=== PATIENT | male | born 1955 | race Caucasian/White ===

== ENCOUNTER 2016-12-08 17:33 | Emergency (ER) | payer MEDICAID ==
[~2016-12-08] VITALS: Ht 182.9 cm; Wt 93.4 kg
[~2016-12-08 17:33] MED LIST: CARV12.548 PO; FAMO20TA8 PO; FURO-150 PO; GLIP10TA11 PO; LISI-209 PO; METF1000 PO
[2016-12-08 17:40] VITALS: BP_SYST 119
[2016-12-08] MEDS ORDERED: LIDOCAINE 2%, 20 ML MDV INJ ONE (18:45)
[2016-12-08] MEDS ORDERED: ACETAMINOPHEN/CODEINE 300 MG-30 MG TABLET PO ONE (18:45)
[2016-12-08] MEDS ORDERED: BACITRACIN 1 GM OINT TP ONE (18:45)
[2016-12-08] MEDS ORDERED: DIPHENHYDRAMINE INJ 50 MG/ML VIAL IM ONE (20:00)
[2016-12-08] MEDS ORDERED: MORPHINE SULFATE 10 MG/ML VIAL IM ONE (20:00)
[2016-12-08 20:45] VITALS: BP_SYST 114
== END 2016-12-08 20:45 | disposition home or self-care (01) ==
LOC: SED 17:33
DX: S01.81XA Laceration without foreign body of other part of head, initial encounter (principal); E11.9 Type 2 diabetes mellitus without complications; I10 Essential (primary) hypertension; Z90.89 Acquired absence of other organs; Z95.9 Presence of cardiac and vascular implant and graft, unspecified; Z79.899 Other long term (current) drug therapy; W17.89XA Other fall from one level to another, initial encounter; Y93.89 Activity, other specified; Y92.488 Other paved roadways as the place of occurrence of the external cause; Y99.8 Other external cause status
CPT/HCPCS: 12011; 71010; 71100; 96372; 99284; J1200; J2001; J2270

== ENCOUNTER 2016-12-16 11:20 | Emergency (ER) | payer MEDICAID ==
[~2016-12-16] VITALS: Ht 182.9 cm; Wt 95.3 kg
--- NOTE | 2016-12-16 11:22 | NUR ---
Patient to ER bed H1 to gown for evaluation. Side rails up.
--- NOTE | 2016-12-16 11:24 | NUR ---
Giorgi Vann, at bedside examining patient
--- NOTE | 2016-12-16 11:25 | NUR ---
Pt brought by self, ambulatory, A&Ox4, present to ER for suture removal, VS WNL, skin pink and warm, cap refill <3, wound intact, no drainage or s/s of infection.
[2016-12-16 11:41] VITALS: BP_SYST 183
[2016-12-16 12:14] VITALS: BP_SYST 172
--- NOTE | 2016-12-16 12:14 | NUR ---
Patient given written and verbal discharge instructions and verbalizes understanding. ER MD discussed with patient the results and treatment provided. Patient in stable condition. ID arm band removed. No prescription given. Patient educated on pain management and to follow up with PMD. Pain Scale 0/10. Opportunity for questions provided and answered.
== END 2016-12-16 12:14 | disposition home or self-care (01) ==
LOC: SED 11:20
DX: S01.111D Laceration without foreign body of right eyelid and periocular area, subsequent encounter (principal); E11.9 Type 2 diabetes mellitus without complications; I10 Essential (primary) hypertension; Z95.9 Presence of cardiac and vascular implant and graft, unspecified; X58.XXXD Exposure to other specified factors, subsequent encounter; Y92.89 Other specified places as the place of occurrence of the external cause; Y99.8 Other external cause status
CPT/HCPCS: 99281

== ENCOUNTER 2018-03-14 11:29 | Emergency (ER) | payer MEDICAID ==
[~2018-03-14] VITALS: Ht 182.9 cm; Wt 90.7 kg
[2018-03-14 11:35] VITALS: BP_SYST 154
[2018-03-14] MEDS ORDERED: NACL 0.9% 1,000 ML IV ONE ×2 (11:35→13:45)
[2018-03-14] MEDS ORDERED: ONDANSETRON HCL 4 MG/2 ML VIAL IVP ONE (11:45)
[2018-03-14] MEDS ORDERED: MORPHINE 4 MG/ML INJ. SYRINGE IVP ONE ×2 (11:45→12:30)
[2018-03-14 12:07] LABS: EOSINOPHILS # (AUTO) 0.1 K/uL (0.0-0.4); LYMPHOCYTES # (AUTO) 1.1 K/uL (1.0-5.5); MEAN CORPUSCULAR HGB CONC 34 % (32-36); MONOCYTES # (AUTO) 0.3 K/uL (0.0-1.0)
[2018-03-14 12:11] LABS: CALCIUM 8.9 mg/dL (8.4-11.0); CREATININE 0.7 mg/dL (0.55-1.30)
[2018-03-14 12:12] LABS: BILIRUBIN,URINE NEGATIVE (NEGATIVE); BLOOD, URINE NEGATIVE (NEGATIVE); CLARITY/URINE CLEAR (CLEAR); COLOR,URINE YELLOW (YELLOW); GLUCOSE,URINE 3+ (NEGATIVE); KETONES,URINE NEGATIVE (NEGATIVE); LEUKOCYTE ESTERASE ,URINE NEGATIVE (NEGATIVE); NITRITE, URINE NEGATIVE (NEGATIVE); PH,URINE 6.5 (5.0-8.0); PROTEIN URINE NEGATIVE (NEGATIVE); UROBILINOGEN,URINE 0.2 (0.2-1.0)
[2018-03-14 12:16] LABS: HEMATOCRIT 52.6 % (36-54); HEMOGLOBIN 17.8 g/dL (14.0-18.0); MEAN CORPUSCULAR HEMOGLOBIN 33 pg (27-31); MEAN CORPUSCULAR VOLUME 98 fL (79.0-98.0); PLATELET COUNT (AUTO) 118 K/uL (130-430); RED BLOOD CELL COUNT(AUTO) 5.35 MIL/uL (4.2-6.2); RED CELL DISTRIBUTION WIDTH 11.9 % (9.0-15.0); WHITE BLOOD COUNT (AUTO) 3.7 K/uL (4.8-10.8)
[2018-03-14 12:17] LABS: ALBUMIN 3.7 g/dL (3.4-4.8); BASOPHILS % (AUTO) 0.6 % (0.0-2.0); EOSINOPHILS % (AUTO) 2.3 % (0.0-4.0); LYMPHOCYTES % (AUTO) 29.9 % (20.5-51.5); NEUTROPHILS # (AUTO) 2.2 K/uL (1.8-7.7); NEUTROPHILS % (AUTO) 60.2 % (40.0-70.0); TOTAL BILIRUBIN 0.8 mg/dL (0.0-1.0)
[2018-03-14 12:23] LABS: INR 0.9 (0.80-1.20); PROTHROMBIN TIME 9.5 SECS (9.5-12.5)
[2018-03-14 12:27] LABS: BACTERIA,URINE RARE /HPF (None Seen); RBC,URINE 0-3 /HPF (0-3); WBC,URINE NONE SEEN /HPF (0-3)
[2018-03-14 14:28] LABS: BARBITURATE, URINE NEGATIVE (NEG <=200); BENZODIAZEPINE, URINE NEGATIVE (NEG <=150); CANNABINOID, URINE NEGATIVE (NEG <=50); COCAINE, URINE NEGATIVE (NEG <=150); METHAMPHETAMINES SCREEN,URINE NEGATIVE (NEG <=500); OPIATE, URINE NEGATIVE (NEG <=100); PHENCYCLIDINE SCREEN,URINE NEGATIVE (NEG <=25); UR TRICYCLIC ANTIDEPRESSANTS NEGATIVE (NEG <=300); URINE AMPHETAMINE NEGATIVE (NEG <=500); URINE METHADONE NEGATIVE (NEG <=200); URINE OXYCODONE SCREEN NEGATIVE (NEG <=100); URINE PROPOXYPHENE SCREEN NEGATIVE (NEG <=300)
[2018-03-14] MEDS ORDERED: FOLIC ACID 1 MG, THIAMINE HCL 100 MG, MAGNESIUM SULFATE 1 GM, MVI 10 ML in NACL 0.9% 1,... IV ONE (15:00)
[2018-03-14] MEDS ORDERED: LORazepam 2 MG/ML VIAL (FOR ER USE) IVP ONE (19:00)
[2018-03-14 19:34] VITALS: BP_SYST 109
== END 2018-03-14 19:34 | disposition home or self-care (01) ==
LOC: SED 11:29
DX: K70.10 Alcoholic hepatitis without ascites (principal); K43.9 Ventral hernia without obstruction or gangrene; F10.129 Alcohol abuse with intoxication, unspecified; F17.210 Nicotine dependence, cigarettes, uncomplicated; I10 Essential (primary) hypertension; E11.9 Type 2 diabetes mellitus without complications; Z90.49 Acquired absence of other specified parts of digestive tract; Z90.89 Acquired absence of other organs; Z79.899 Other long term (current) drug therapy
CPT/HCPCS: 36415; 71045; 74176; 80053; 80307; 81000; 82550; 83690; 84484; 85025; 85610; 85730; 93005; 96365; 96366; 96375; 96376; 99285; G0482; J2060; J2270; J2405; J3411; J3475; J3490; J7030

== ENCOUNTER 2018-03-23 17:09 | Emergency (ER) | payer MEDICAID ==
[~2018-03-23] VITALS: Ht 182.9 cm; Wt 93.0 kg
[2018-03-23 17:32] VITALS: BP_SYST 137
[2018-03-23] MEDS ORDERED: ONDANSETRON 4 MG ODT TAB PO ONE (19:45)
[2018-03-23] MEDS ORDERED: MORPHINE 4 MG/ML INJ. SYRINGE IM ONE (19:45)
[2018-03-23] MEDS ORDERED: KETOROLAC TROMETHAMINE 60 MG/2 ML VIAL IM ONE (21:00)
[2018-03-23 21:25] VITALS: BP_SYST 143
== END 2018-03-23 21:25 | disposition home or self-care (01) ==
LOC: SED 17:09
DX: M62.830 Muscle spasm of back (principal); E11.9 Type 2 diabetes mellitus without complications; I10 Essential (primary) hypertension; F17.200 Nicotine dependence, unspecified, uncomplicated; Z86.79 Personal history of other diseases of the circulatory system; Z79.899 Other long term (current) drug therapy
CPT/HCPCS: 71045; 72040; 72072; 96372; 99283; J1885; J2270; Q0162

== ENCOUNTER 2018-07-09 16:38 | Emergency (ER) | payer MEDICAID ==
[~2018-07-09] VITALS: Ht 177.8 cm; Wt 86.2 kg
[2018-07-09 16:38] VITALS: BP_SYST 114
[2018-07-09] MEDS ORDERED: IOHEXOL 100 ML IV ONE (17:16)
[2018-07-09 17:18] LABS: CALCIUM 8.3 mg/dL (8.4-11.0); CREATININE 0.51 mg/dL (0.55-1.30); POTASSIUM 3.8 mmol/L (3.5-5.1)
[2018-07-09 17:21] LABS: INR 0.9 (0.80-1.20); PROTHROMBIN TIME 9.2 SECS (9.5-12.5)
[2018-07-09 17:23] LABS: ALBUMIN 3.4 g/dL (3.4-4.8); TOTAL BILIRUBIN 0.4 mg/dL (0.0-1.0)
[2018-07-09 17:38] LABS: HEMATOCRIT 47.8 % (36-54); HEMOGLOBIN 16.6 g/dL (14.0-18.0); MEAN CORPUSCULAR HEMOGLOBIN 35 pg (27-31); MEAN CORPUSCULAR HGB CONC 35 % (32-36); MEAN CORPUSCULAR VOLUME 99 fL (79.0-98.0); RED BLOOD CELL COUNT(AUTO) 4.81 MIL/uL (4.2-6.2); RED CELL DISTRIBUTION WIDTH 12.6 % (9.0-15.0)
[2018-07-09 17:39] LABS: BASOPHILS % (AUTO) 0.7 % (0.0-2.0); EOSINOPHILS # (AUTO) 0.1 K/uL (0.0-0.4); EOSINOPHILS % (AUTO) 2.8 % (0.0-4.0); LYMPHOCYTES # (AUTO) 1.2 K/uL (1.0-5.5); LYMPHOCYTES % (AUTO) 31.3 % (20.5-51.5); MONOCYTES # (AUTO) 0.4 K/uL (0.0-1.0); MONOCYTES % (AUTO) 9.9 % (1.7-9.3); NEUTROPHILS # (AUTO) 2.2 K/uL (1.8-7.7); NEUTROPHILS % (AUTO) 55.3 % (40.0-70.0); PLATELET COUNT (AUTO) 103 K/uL (130-430)
[2018-07-09 18:57] VITALS: BP_SYST 127
== END 2018-07-09 18:57 | disposition home or self-care (01) ==
LOC: SED 16:38
DX: E11.65 Type 2 diabetes mellitus with hyperglycemia (principal); R59.0 Localized enlarged lymph nodes; I10 Essential (primary) hypertension; Z86.79 Personal history of other diseases of the circulatory system; Z79.899 Other long term (current) drug therapy
CPT/HCPCS: 36415; 70491; 71045; 80053; 83880; 84484; 85025; 85379; 85610; 85730; 93005; 99284; Q9967

== ENCOUNTER 2019-05-24 23:01 | Inpatient (IN) | payer MEDICAID ==
[~2019-05-24] VITALS: Ht 180.3 cm; Wt 84.8 kg
[2019-05-24 23:05] VITALS: BP_SYST 128
--- NOTE | 2019-05-24 23:25 | NUR ---
AWAKE, ALERT, ORIENTED. PT STATES HE HAD SEVERE MID ABDOMINAL PAIN RELATED O PROTRUDING HERNIA X 2 DAYS. WHICH IS WORSE TODAY. P ALS STATES THAT THE PAIN RADIATES TO HS RIGHT SHOULDER. AT BEDSIDE.
--- NOTE | 2019-05-24 23:35 | NUR ---
ER at bedside examining patient.
[2019-05-25 00:40] LABS: BASOPHILS % (AUTO) 0.9 % (0.0-2.0); EOSINOPHILS # (AUTO) 0.2 K/uL (0.0-0.4); HEMATOCRIT 46.3 % (36-54); HEMOGLOBIN 15.9 g/dL (14.0-18.0); LYMPHOCYTES # (AUTO) 0.8 K/uL (1.0-5.5); LYMPHOCYTES % (AUTO) 15.2 % (20.5-51.5); MEAN CORPUSCULAR HEMOGLOBIN 37 pg (27-31); MEAN CORPUSCULAR HGB CONC 34 % (32-36); MEAN CORPUSCULAR VOLUME 108 fL (79.0-98.0); MONOCYTES # (AUTO) 0.4 K/uL (0.0-1.0); MONOCYTES % (AUTO) 8.6 % (1.7-9.3); NEUTROPHILS # (AUTO) 3.7 K/uL (1.8-7.7); NEUTROPHILS % (AUTO) 72.3 % (40.0-70.0); PLATELET COUNT (AUTO) 95 K/uL (130-430); RED BLOOD CELL COUNT(AUTO) 4.29 MIL/uL (4.2-6.2); RED CELL DISTRIBUTION WIDTH 14.4 % (9.0-15.0); WHITE BLOOD COUNT (AUTO) 5.2 K/uL (4.8-10.8)
[2019-05-25 00:44] LABS: BILIRUBIN,URINE NEGATIVE (NEGATIVE); BLOOD, URINE NEGATIVE (NEGATIVE); CLARITY/URINE CLEAR (CLEAR); COLOR,URINE YELLOW (YELLOW); GLUCOSE,URINE 3+ (NEGATIVE); KETONES,URINE NEGATIVE (NEGATIVE); LEUKOCYTE ESTERASE ,URINE NEGATIVE (NEGATIVE); NITRITE, URINE NEGATIVE (NEGATIVE); PROTEIN URINE NEGATIVE (NEGATIVE)
[2019-05-25 00:51] LABS: CALCIUM 8.5 mg/dL (8.4-11.0); CREATININE 0.78 mg/dL (0.55-1.30); POTASSIUM 3.4 mmol/L (3.5-5.1)
[2019-05-25 00:56] LABS: PROTHROMBIN TIME 10.4 SECS (9.5-12.5)
[2019-05-25 00:57] LABS: ALBUMIN 2.7 g/dL (3.4-4.8); TOTAL BILIRUBIN 3.8 mg/dL (0.0-1.0)
[2019-05-25 01:13] LABS: BACTERIA,URINE FEW /HPF (None Seen); RBC,URINE 0-3 /HPF (0-3); WBC,URINE 0-3 /HPF (0-3)
--- NOTE | 2019-05-25 01:45 | NUR ---
Lab present to draw blood.
[2019-05-25] MEDS ORDERED: NACL 0.9% 1,000 ML IV ONE (02:55)
[2019-05-25] MEDS ORDERED: MORPHINE 4 MG/ML INJ. SYRINGE IVP ONE ×2 (03:00→06:00)
[2019-05-25] MEDS ORDERED: DIPHENHYDRAMINE INJ 50 MG/ML VIAL IVP ONE ×2 (03:00→06:00)
[2019-05-25] MEDS ORDERED: MORPHINE 4 MG/ML INJ. SYRINGE ONE ×2 (03:35→06:23)
--- NOTE | 2019-05-25 03:47 | NUR ---
BENADRYL 25 MG AND MORPHINE 4 MG IVP GIVEN FOR C/O ABDOMINAL PAIN.
--- NOTE | 2019-05-25 04:40 | NUR ---
Pt to radiology via stretcher in stable condition. Pt verbalizes improvement in pain.
[2019-05-25] MEDS ORDERED: IOHEXOL 100 ML IV ONE (04:51)
[2019-05-25] MEDS ORDERED: INSULIN REGULAR, HUMAN 10 UNITS/0.1 ML INJ IVP ONE (06:00)
--- NOTE | 2019-05-25 06:00 | NUR ---
ABLE TO AMBULATE TO BATHROOM EARLIER. STATES HE WAS IN PAIN AGAIN.
--- NOTE | 2019-05-25 06:17 | NUR ---
MORPHINE 4 MG IVP GIVEN FOR C/O ABDOMINAL PAIN. BENADRYL 25 MG IVP FOR SEDATION. REGULAR INSULIN 8 UNITS SQ FOR BS 355.
--- NOTE | 2019-05-25 07:46 | NUR ---
Reconciled medications. Belonging's list done. Called for a bed.
--- NOTE | 2019-05-25 08:50 | NUR ---
Patient will be admitted to care of Dr. Acosta. Admitted to Medsurg unit. Will go to room 108C. Belongings list completed. Complete and up to date summary report printed. SBAR report given to SHASHANK Barrientos at bedside with opportunity for questions.
--- NOTE | 2019-05-25 08:58 | NUR ---
0827 ADMIT NOTE Received pt from ER to the floor with a diagnosis of hernia. Admission process initiated. patient oriented to pain management, safety and call light-teach back done.
[2019-05-25 08:59] VITALS: BP_SYST 159
[2019-05-25 09:00] VITALS: BP_SYST 153
--- NOTE | 2019-05-25 09:20 | NUR ---
CONSULT SURGERY PROTRUDING HERNIA DR BO [phone] S/W SAE OFFICE
--- NOTE | 2019-05-25 09:45 | NUR ---
0836 RN INITIAL ADMISSION NOTES, RECEIVED PATIENT FROM OUTSOLE CEMENTER TY , PALCED IN BED COMFORTABLY, PATIENT WITH IV HL TO RT FA G 22, NO COMPLAIN OF PAIN AT THIS TIME, PATIENT WITH FAMILY AT BEDSIDE , EXPLAINED PLAN OF CARE ,MAINTAINED NPO FOR SURGICAL CONSULT WITH DR ANUPAM HERNDON HERNIA
--- NOTE | 2019-05-25 10:06 | NUR ---
PAGED FOR PAIN PAGED DR TREVINO FOR PRN PAIN MEDS
[2019-05-25] MEDS: MORPHINE 2 MG/ML INJ. SYRINGE IVP PRN (11:02)
[2019-05-25] MEDS ORDERED: LORazepam 2 MG/ML VIAL IVP PRN (14:15)
[2019-05-25] MEDS ORDERED: ONDANSETRON HCL 4 MG/2 ML VIAL IVP PRN ×2 (14:15→21:45)
[2019-05-25] MEDS ORDERED: D5/0.45 NS 1,000 ML IV SCH (14:15)
[2019-05-25] MEDS: MORPHINE 4 MG/ML INJ. SYRINGE IVP PRN ×2 (14:22→18:56)
[2019-05-25 16:13] VITALS: BP_SYST 157
--- NOTE | 2019-05-25 16:24 | NUR ---
DR ANUPAM SANDHU RETURNED CALL AND INFORMED PATIENT IN PAIN AND STARTED HAVING FEVER ,SURGEON SAID TO CALL DR TREVINO TO ORDER FOR CARDIOLOGY FOR CP CLEARANCE , HE SAID HE WILL COME AND SEE PATIENT , SPONGING AT THIS TIME
--- NOTE | 2019-05-25 16:36 | NUR ---
CARDIOLOGY PATIENT CALLED TO DR MICHAEL TREVINO WITH ORDERS FOR 2 D ECHO AND EKG NOW
[2019-05-25] MEDS ORDERED: ACETAMINOPHEN 325 MG TABLET PO PRN (16:45)
--- NOTE | 2019-05-25 17:00 | NUR ---
DR BO PATIENT SEEN AND EXPLAINED PLAN OF CARE TO PATIENT AND , INFORMED MD THAT PATIENT STILL TO HAVE 2 D HEALTH PSYCHOLOGIST ON ITS WAY , PATIENT WILL BE POSSIBLE WITH SURGERY PENDING SENIOR LEAD SOFTWARE ENGINEER CLEARANCE
[2019-05-25] MEDS: metFORMIN HCL 500 MG TABLET PO SCH (17:38)
--- NOTE | 2019-05-25 17:39 | NUR ---
DR URIEL TREVINO HERE AND INFORMED PATIENT NPO NO GLIPIZIDE AND GLUCOPHAGE GIVEN PATIENT IS NPO AND SAID OK NO NEED TO GIVE Addendum: 05/25/19 at 1802 by Iliana Zuniga RN BS 229 DR TREVINO SAID OK TO GIVE INSULIN AND AWARE GLIPIZIDE AND GLUCOPHAGE NOT GIVEN D/T NPO
[2019-05-25] MEDS: INSULIN REGULAR, HUMAN 100 UNITS/ML, 10 ML VIAL (humuLIN R) SUBCUT PRN (17:57)
[2019-05-25] MEDS ORDERED: ACETAMINOPHEN 325 MG SUPP.RECT RC PRN (18:00)
--- NOTE | 2019-05-25 18:59 | NUR ---
ENDORSEMENT WILL ENDORSE TO NEXT SHIFT CONT PLAN OF CARE , PATIENT HAD JUST DONE WITH 2 D ECHO , AND TO CALL DR TREVINO FOR THE READING AND FOR CP CLEARANCE PRIOR TO PLAN SURGERY EXPLAINEDE TOT HE PATIENT , WILL NOTIFY COMPETITIVE ATHLETE AND TO [id number] DONE AND EKG DONE, PAIN MGT CONTINUES Addendum: 05/25/19 at 1919 by Iliana Zuniga RN WILL FOLLOW UP WITH COMPETITIVE ATHLETE AND PATIENT SAID HE WAS TOLD TO BE SEEN BY COMPETITIVE ATHLETE BEFORE THE REPAIR OF INCARCERATED VENTRAL HERNIA WITH POSSIBLE MESH,
--- NOTE | 2019-05-25 19:28 | NUR ---
LAST ENDORSEMENT PATIENT WAS GIVEN MORPHINE AND PATIENT IS BEING SEEN BY THE TRAUMA PROGRAM MANAGER AT THIS TIME THEN TO SECURE CONSENT AFTER CP CLEARANCE IS DONE BY THE TRAUMA PROGRAM MANAGER , NEXT SHIFT WILL FOLLOW UP
[2019-05-25 20:00] VITALS: BP_SYST 157
--- NOTE | 2019-05-25 20:00 | NUR ---
Received pt. in bed resting, alert, awake, oriented x 4, in Room Air, 02 sat. 96 %, no s/s of sob/dyspnea. Breathing regular and unlabored. Pt. adlib in bed, able to turn self and can ambulate from the bed to the BR and vice versa. Pt. given pain reliever earlier and is pain free @ this time. Pt. is calm, pleasant, coherent and understands/follows commands. Pt. for Repiar for incarcerated Ventral Incisional Hernia with Possible Mesh as ordered by the Doctor of Surgery. Pt. signed consent after Dr. Acosta, gave cardiac clearance that its okay for the pt. to have the surgery or pt. is clear cardiac nobles to have the surgery tonight or tomorrow. Pt. provided health teachings about the possible surgery tonight, prepared pre-op Checklist, and Dr. Acosta notified assigned RN that pt. EKG result is Sinus Rhythm, with low to moderate risk and Cardiac status is cleared for the Surgery. Pt. given pre-op teachings and pt. signed Blood products consent too as needed for OR. Dr. Salguero called and notified that pt. is cleared for Cardiac - low to moderate risk and is SR EKG results. Dr. Salguero will communicate to the 8Th Grade Mathematics Teacher and OR Personnell. Prepared pt. for Possible Surgery tonight. Pt. verbalized understanding and signed the Consent with the RN. Brandie as the Witness.
--- NOTE | 2019-05-25 20:40 | NUR ---
Dr. Salguero is going to do the OR Surgical Procedure for Pt.'s Hernia Problem and pt. is wheeled by carlos to the OR with the help of the instrumentation and controls technician, Derick and [place]. staff. Pt. and family members - and Sister given health teachings and supportive to pt. care. Pt.'s and Sister verbalized understanding and were cooperative for pt. OR Procedure. and Sister accompanied pt. too to the OR. Pt.'s V/s taken and recorded to the Pre-op checklist.
[2019-05-25] MEDS ORDERED: ISOFLURANE 15 MIN GAS INH ONE (20:48)
[2019-05-25] MEDS ORDERED: BUPIVACAINE /PF 0.5% 30 ML VIAL INJ ONE (20:48)
[2019-05-25] MEDS ORDERED: PROPOFOL 200MG/ 20ML VIAL (DIPRIVAN) IV ONE (20:48)
[2019-05-25] MEDS ORDERED: DEXAMETHASONE SOD PHOSPHATE 4 MG/ML VIAL IVP ONE (20:48)
[2019-05-25] MEDS ORDERED: ePHEDrine sulfate 50 MG/ML VIAL IVP ONE (20:48)
[2019-05-25] MEDS ORDERED: MIDAZOLAM HCL 5 MG/5 ML VIAL IVP ONE (20:48)
[2019-05-25] MEDS ORDERED: NS 1000 ML IV.SOLN IV ONE (20:48)
[2019-05-25] MEDS ORDERED: ROCURONIUM BROMIDE 10 MG/ML (ZEMURON) IV ONE (20:48)
[2019-05-25] MEDS ORDERED: fentaNYL CITRATE/PF 100 MCG/2 ML AMP IVP ONE (20:48)
[2019-05-25] MEDS ORDERED: SUGAMMADEX SODIUM 200 MG/2 ML VIAL IV ONE (20:48)
[2019-05-25] MEDS ORDERED: SUCCINYLCHOLINE CHLORIDE 20 MG/ML(QUELICIN) IVP ONE (20:48)
[2019-05-25] MEDS: CARVEDILOL 12.5 MG TABLET (COREG) PO SCH (21:00)
[2019-05-25] MEDS: FAMOTIDINE 20 MG TABLET PO SCH (21:00)
[2019-05-25] MEDS ORDERED: POLYMYXIN 500,000/BACIT.10,000 UNITS in NS IRR 1 L IR ONE (21:12)
[2019-05-25] MEDS ORDERED: BUPIVACAINE LIPOSOME/PF 266 MG/20 ML VIAL INFIL ONE (21:12)
[2019-05-25] MEDS ORDERED: HYDROmorphone 1 MG INJ. 1 MG/ML AMPUL IVP PRN (21:45)
[2019-05-25] MEDS ORDERED: INSULIN REGULAR, HUMAN 100 UNITS/ML, 10 ML VIAL (humuLIN R) ONE (21:59)
[2019-05-26] MEDS ORDERED: HYDROmorphone 1 MG INJ. 1 MG/ML AMPUL ONE (00:57)
[2019-05-26] MEDS ORDERED: ceFAZolin SODIUM 2 GM in D5W 100 ML IV SCH (01:15)
[2019-05-26] MEDS: NACL 0.9% 1,000 ML IV SCH ×2 (01:30→21:03)
--- NOTE | 2019-05-26 01:30 | NUR ---
Pt. returned to the MST Floor by carlos accompanied by the RR RN. Pt. S/P hernia repair with abdominal binder and with HUMPHREY drain attached to the Right side of the Abdomen to drain blood/serosanguineous fluid s/p surgery. Pt. sleeping, calm, flat in bed and with IVF of NS to run @ the IV Pump @ 50 mls./hr continuous as newly ordered by the Doctor s/p hernia surgery. Pt. pain free and face and body looks relaxed and comfortable. Pt. denies pain @ this time when assessed. Pt. received already pain reliever before transporting to the Medical-Surgical Floor Room 108 bed C. No s/s of agitation or anxiety @ this time.
[2019-05-26 02:19] VITALS: BP_SYST 155
--- NOTE | 2019-05-26 02:30 | NUR ---
Ancef 2 GM IVPB given @ this time as ordered by the Doctor s/p hernia surgery. Pt. still sleeping and pain free.
[2019-05-26] MEDS ORDERED: CEFAZOLIN 2 GM IVPB PREMIX 50 ML IV ONE (02:52)
--- NOTE | 2019-05-26 04:00 | NUR ---
Pt. calm and sleeping. No s/s of pain or no s/s of agitation/anxiety. Pt. sleeping undisturbed. IVF of NS continuously running @ 50 mls./hr.
--- NOTE | 2019-05-26 06:20 | NUR ---
Accucheck taken with result of BS = 287.
--- NOTE | 2019-05-26 07:04 | NUR ---
Glucotrol 15 mg. = 1.5 tab. given to pt. before breakfast with BS = 287 @ 0620 AM.
--- NOTE | 2019-05-26 07:20 | NUR ---
AM ROUNDS: PATIENT LYING ON THE BED,AWAKE,ALERT AND ORIENTED X4. WITH MID ABD INCISION ,WITH SURGICAL DRESSING,WRAPPED WITH ABDOMINAL BINDER,CLEAN AND DRY. HUMPHREY DRAINING TO REDDISH COLOR DISCHARGES. BILATERAL SCD,S ON LE. IV AT RIGHT FOREARM INTACT.NO COMPLAINED MADE THIS TIME. CALL LIGHT WITH IN REACH. BED LOCKED AT LOWEST POSITION. CONTINUE TO MONITOR.
[2019-05-26 07:29] LABS: CALCIUM 8.2 mg/dL (8.4-11.0); CREATININE 0.87 mg/dL (0.55-1.30); POTASSIUM 4.2 mmol/L (3.5-5.1)
[2019-05-26 07:37] LABS: BASOPHILS % (AUTO) 0.2 % (0.0-2.0); EOSINOPHILS % (AUTO) 0.1 % (0.0-4.0); HEMATOCRIT 40.3 % (36-54); HEMOGLOBIN 13.6 g/dL (14.0-18.0); LYMPHOCYTES # (AUTO) 0.3 K/uL (1.0-5.5); MEAN CORPUSCULAR HEMOGLOBIN 37 pg (27-31); MEAN CORPUSCULAR HGB CONC 34 % (32-36); MEAN CORPUSCULAR VOLUME 110 fL (79.0-98.0); MONOCYTES # (AUTO) 0.4 K/uL (0.0-1.0); MONOCYTES % (AUTO) 8.5 % (1.7-9.3); NEUTROPHILS # (AUTO) 3.8 K/uL (1.8-7.7); NEUTROPHILS % (AUTO) 85.2 % (40.0-70.0); PLATELET COUNT (AUTO) 83 K/uL (130-430); RED CELL DISTRIBUTION WIDTH 14.3 % (9.0-15.0); WHITE BLOOD COUNT (AUTO) 4.5 K/uL (4.8-10.8)
[2019-05-26] MEDS: INSULIN REGULAR, HUMAN 100 UNITS/ML, 10 ML VIAL (humuLIN R) SUBCUT PRN ×4 (07:51→21:12)
--- NOTE | 2019-05-26 07:51 | NUR ---
Regular Insulin given 6 units for BS = 287 SQ @ the right deltoid area. Given @ this time when breakfast tray is available @ the bedside and before taking the clear liquid diet breakfast. Day RN made aware and witnessed the insulin s/s dose - see Emar.
[2019-05-26 08:04] LABS: RED BLOOD CELL COUNT(AUTO) 3.67 MIL/uL (4.2-6.2)
[2019-05-26 08:15] VITALS: BP_SYST 141
[2019-05-26] MEDS: metFORMIN HCL 500 MG TABLET PO SCH ×2 (10:10→17:44)
[2019-05-26] MEDS: FAMOTIDINE 20 MG TABLET PO SCH ×2 (10:11→21:04)
[2019-05-26] MEDS: LISINOPRIL 5 MG TABLET PO SCH (10:11)
[2019-05-26] MEDS: CARVEDILOL 12.5 MG TABLET (COREG) PO SCH ×2 (10:12→21:00)
[2019-05-26] MEDS: FUROSEMIDE 20 MG TABLET PO SCH (10:12)
[2019-05-26] MEDS: ceFAZolin SODIUM 2 GM in D5W 100 ML IV SCH ×3 (10:16→23:12)
--- NOTE | 2019-05-26 10:30 | NUR ---
PAIN MEDS: C/O POST OP PAIN ,DUE IV MORPHINE GIVEN FOR MODERATE PAIN. NO ADVERSE REACTIONS NOTED.
[2019-05-26] MEDS: MORPHINE 2 MG/ML INJ. SYRINGE IVP PRN (10:31)
[2019-05-26 11:20] VITALS: BP_SYST 123
--- NOTE | 2019-05-26 11:30 | NUR ---
BLOOD SUGAR: BLOOD SUGAR TAKEN,WITH INSULIN COVERAGE GIVEN PER SLIDING SCALE. NO PROBLEM.
[2019-05-26] MEDS: MORPHINE 4 MG/ML INJ. SYRINGE IVP PRN ×3 (14:03→23:11)
--- NOTE | 2019-05-26 14:03 | NUR ---
IV PAIN MEDS: C/O POST OP PAIN AND DUE IV MORPHINE GIVEN FOR SEVERE PAIN. NO PROBLEM.
[2019-05-26 15:25] VITALS: BP_SYST 100
--- NOTE | 2019-05-26 17:50 | NUR ---
BLOOD SUGAR: BLOOD WTHKH=541NV/DL,HUMULIN R 4 UNITS SUBQ GIVEN PER SLIDING SCALE,WITH NO PROBLEM.
--- NOTE | 2019-05-26 18:14 | NUR ---
IV PAIN MEDS: C/O POST OP PAIN AND DUE IV MORPHINE GIVEN FOR SEVERE PAIN. NO ADVERSE REACTIONS NOTED .
--- NOTE | 2019-05-26 18:30 | NUR ---
END OF SHIFT: EMPTIED THE HUMPHREY DRAIN AND DR BO CAME AND DID HIS ROUNDS AND INFORMED HIM ABOUT,PATIENT HAD A COUGH,DRESSING CHECKED,THERE WAS MODERATE BLEEDING NOTED IN THE DRESSING.CALL LIGHT WITH IN REACH.EDUCATION GIVEN REGARDING PILLOW SUPPORT DURING COUGHING.PATIENT UNDERSTANDS THE TEACHINGS GIVEN.NO ACTIVE BLEEDING FROM THE INCISION NOTED THIS TIME. PRACTICE GUIDELINES MET THROUGH OUT THE SHIFT.CONTINUE TO MONITOR.
[2019-05-26 19:00] VITALS: BP_SYST 104
--- NOTE | 2019-05-26 19:15 | NUR ---
change of shift.pt.presents quiescent affect;calm,resting,viewing tv programming.pt.presents s/p surgery;inquinal hernia repair per :05/25/29.no c/o pain,nausea@this hour.pt.utilizing a pilow to brace abdomen 2/t cough.pt.presents iv access intact patent iv fluids infusing.pt.presents j-delgado x1;location;llq;intact;patent:blood return present.pt.capable to reposition self,ambulate. call light/telehone w/in reach of the pt.
[2019-05-26 20:00] VITALS: BP_SYST 104
--- NOTE | 2019-05-26 20:00 | NUR ---
pt.assessed.v/s assessed;values w/in normal limits.no c/o pain,nausea.pt.stated pain present when cough presents self.pillow has been provided to brace the abdomen when cough presents self.i have apprised the pt.that i may provide snacks/beverages w/in the shift/w/in the parameters of the clear liquids diet.pt.requested jello.i have provided the jello x2 cups.pt. presents j-delgado x1;location;llq:abdomen intact,patent;blood retur prest w/in the collectyion chamnber.dsg original surgical intact.abdomen binder in p[laced.
--- NOTE | 2019-05-26 20:30 | NUR ---
i have assessed the blood glucose;value;247mg/dl.i have apprised the pt.of the blood glucose value and the need to administer insulin per the sliding scale.
--- NOTE | 2019-05-26 21:00 | NUR ---
2100p medications administered.i have administered insulin;regular;6-units.pt capable to ingests medications whole w/out difficulty.
--- NOTE | 2019-05-26 23:00 | NUR ---
pt.had c/o pain/nausea.i have administered;morphine;4mg ivp;to re-assess the medication efficacy per pain mgx protocol/zofran;4mg ivp.no additional requests posited@this hour.
--- NOTE | 2019-05-27 | NUR ---
pt.assessed.v/s assessed;values w/in normal limits.iv access intact;patent;iv fluids infusing.no c/o pain,nausea.i have attended to the j-delgado; measured/cleaned.i have inspected the abdomen dsg.i have placed additional 4x5 gauze pads upon the rlq region.dsg is presents blood drainage. apprised of the rlq drainage;original dsg;surgery intact.call light/telephone w/in reach of the pt.pt.capable to reposition self.
[2019-05-27 01:43] VITALS: BP_SYST 114
--- NOTE | 2019-05-27 02:00 | NUR ---
pt.assessed.pt.presents quiescent affect;calm,somnolent.iv acces intact;patent;iv fluids infusing.general status stable.respiratory status stable;unlabored.pt capable to reposition self.call light/telephone w/in reach of the pt.
[2019-05-27] MEDS: MORPHINE 4 MG/ML INJ. SYRINGE IVP PRN ×4 (04:24→22:00)
--- NOTE | 2019-05-27 04:30 | NUR ---
pt.requested medication;pain.i have administered morphine;4mg ip.to re-assess the efficacy of the pain medication per pain mgx protocol.no additional requests posited @this hour.
--- NOTE | 2019-05-27 06:08 | NUR ---
pt.assessed.pt.presents quiescent affect;calm,resting,viewing tv programming.i have assessed the blood glucose;values;179mg/dl.i have apprised the pt.of the blood glucose values.i have attended to the j-delgado:measured/cleaned.i have assessed the abdomen dsg intact.i have attended to the urinal measured/cleaned.place w/in reach of the pt.iv access intact;patent iv fluids infusing.general status stable.respiratory status stable;unlabored.call light/telephone w/in reach of the pt. Addendum: 05/27/19 at 0614 by Kamari Jacobs RN i have weighed the pt.the am.2/t chf/lasix.history/administration.
[2019-05-27] MEDS: INSULIN REGULAR, HUMAN 100 UNITS/ML, 10 ML VIAL (humuLIN R) SUBCUT PRN ×4 (06:28→22:09)
[2019-05-27 06:35] LABS: C-REACTIVE PROTEIN QUANT 9.9 mg/dL (0-0.5); CALCIUM 8.1 mg/dL (8.4-11.0); CREATININE 0.89 mg/dL (0.55-1.30); POTASSIUM 3.7 mmol/L (3.5-5.1)
[2019-05-27 06:53] LABS: BASOPHILS # (AUTO) 0.1 K/uL (0.0-0.2); BASOPHILS % (AUTO) 1.3 % (0.0-2.0); EOSINOPHILS # (AUTO) 0.2 K/uL (0.0-0.4); EOSINOPHILS % (AUTO) 3.4 % (0.0-4.0); HEMATOCRIT 38.4 % (36-54); LYMPHOCYTES # (AUTO) 0.8 K/uL (1.0-5.5); LYMPHOCYTES % (AUTO) 13.2 % (20.5-51.5); MEAN CORPUSCULAR HEMOGLOBIN 37 pg (27-31); MEAN CORPUSCULAR HGB CONC 34 % (32-36); MEAN CORPUSCULAR VOLUME 110 fL (79.0-98.0); MONOCYTES # (AUTO) 0.7 K/uL (0.0-1.0); MONOCYTES % (AUTO) 11.3 % (1.7-9.3); NEUTROPHILS # (AUTO) 4.4 K/uL (1.8-7.7); PLATELET COUNT (AUTO) 96 K/uL (130-430); RED BLOOD CELL COUNT(AUTO) 3.48 MIL/uL (4.2-6.2); RED CELL DISTRIBUTION WIDTH 14.6 % (9.0-15.0); WHITE BLOOD COUNT (AUTO) 6.3 K/uL (4.8-10.8)
--- NOTE | 2019-05-27 07:25 | NUR ---
AM ROUNDS: UPDATES GIVEN BY NIGHT NURSE CONNOR.PATIENT SLEEPING. IV FLUIDS RUNNING RIGHT FOREARM ,CLEAN AND DRY.MID ABDOMEN DRESSING,OLD STAINED.NO ACTIVE BLEEDING THIS TIME. CALL LIGHT WITH IN REACH. BED LOCKED AT LOWEST POSITION.NO ACUTE DISTRESS.
[2019-05-27 08:06] LABS: NEUTROPHILS % (AUTO) 70.8 % (40.0-70.0)
[2019-05-27] MEDS: CARVEDILOL 12.5 MG TABLET (COREG) PO SCH ×2 (09:00→21:00)
[2019-05-27] MEDS: FAMOTIDINE 20 MG TABLET PO SCH ×2 (09:26→21:58)
[2019-05-27] MEDS: FUROSEMIDE 20 MG TABLET PO SCH (09:26)
[2019-05-27] MEDS: LISINOPRIL 5 MG TABLET PO SCH (09:26)
[2019-05-27] MEDS: ceFAZolin SODIUM 2 GM in D5W 100 ML IV SCH ×2 (09:27→15:22)
--- NOTE | 2019-05-27 09:30 | NUR ---
RN ROUNDS: RESTING. NO DISTRESS.
[2019-05-27] MEDS: metFORMIN HCL 500 MG TABLET PO SCH ×2 (09:34→17:40)
[2019-05-27 09:39] VITALS: BP_SYST 114
[2019-05-27 09:48] LABS: ERYTHROCYTE SEDIMENTATION RATE 59 MM/HR (0-15)
--- NOTE | 2019-05-27 12:12 | NUR ---
BLOOD SUGAR: BLOOD SUGAR =230MG/DL,HUMULIN R 4 UNITS SUBQ GIVEN PER SLIDING SCALE. NO PROBLEM.
[2019-05-27 12:26] VITALS: BP_SYST 108
--- NOTE | 2019-05-27 14:00 | NUR ---
RN ROUNDS: PATIENT AMBULATING IN THE HALLWAY WITH HIS THEN BACK TO HIS ROOM.WITH GOOD STEADY GAIT.
--- NOTE | 2019-05-27 15:19 | NUR ---
IV PAIN MEDS: PT C/O POST OP PAIN AND DUE IV MORPHINE GIVEN PER REQUEST.NO ADVERSE REACTIONS NOTED.
--- NOTE | 2019-05-27 15:26 | NUR ---
Dietitian Recommendations *Continue clear liquid diet as tolerated *When ready to advance, consider CCHO, Cardiac Please see Nutrition Assessment for further details. LT, RD
[2019-05-27 16:00] VITALS: BP_SYST 113
[2019-05-27] MEDS: NACL 0.9% 1,000 ML IV SCH ×2 (16:30→22:19)
--- NOTE | 2019-05-27 17:30 | NUR ---
BLOOD SUGAR: BLOOD SUGAR TAKEN,WITH INSULIN COVERAGE GIVEN PER SLIDING SCALE. WITH NO PROBLEM.
--- NOTE | 2019-05-27 18:38 | NUR ---
CLOSING NOTES: PATIENT AMBULATING THE HALLWAY. WITH STEADY GAIT.IV FLUIDS RUNNING WELL. NO ACTIVE BLEEDING NOTED.ABDOMINAL BINDER ON,SURGICAL DRESSING IN PLACE. HUMPHREY DRAIN IN SITU. NEEDS ATTENDED TO.
--- NOTE | 2019-05-27 19:30 | NUR ---
Opening Note Received patient resting in bed, AOx4. No s/sx of distress, nonlabored breathing. IVF infusing via RFA. Bed is locked in lowest position and call light w/in reach. Updated board and reviewed plan of care.
[2019-05-27 20:00] VITALS: BP_SYST 104
--- NOTE | 2019-05-27 22:00 | NUR ---
c/o pain Patient reports severe pain to abdominal / incision area. Administered Morphine for severe pain as ordered. Will continue to monitor.
--- NOTE | 2019-05-27 22:05 | NUR ---
Medications / Fingerstick BGT Due medications given, held Coreg due to low blood pressure. Fingerstick BG test done w/ result of 203mg/dL; administered insulin per sliding scale order.
[2019-05-28 00:05] VITALS: BP_SYST 106
[2019-05-28] MEDS: ceFAZolin SODIUM 2 GM in D5W 100 ML IV SCH ×3 (01:13→15:24)
[2019-05-28] MEDS: MORPHINE 4 MG/ML INJ. SYRINGE IVP PRN (02:16)
--- NOTE | 2019-05-28 02:20 | NUR ---
c/o pain Patient reports severe pain to abdominal / incision area. He states that the floor waxing chemicals caused him to cough frequently and is experiencing severe pain. He denies nausea. Administered Morphine for severe pain as ordered. Will continue to monitor.
--- NOTE | 2019-05-28 05:54 | NUR ---
Ambulate in hallway Patient is awake and ambulating in hallway with steady gait.
[2019-05-28] MEDS: MORPHINE 2 MG/ML INJ. SYRINGE IVP PRN ×3 (06:38→15:23)
[2019-05-28 07:33] LABS: BASOPHILS # (AUTO) 0.1 K/uL (0.0-0.2); BASOPHILS % (AUTO) 0.9 % (0.0-2.0); EOSINOPHILS # (AUTO) 0.2 K/uL (0.0-0.4); EOSINOPHILS % (AUTO) 3.7 % (0.0-4.0); HEMATOCRIT 40.3 % (36-54); HEMOGLOBIN 13.7 g/dL (14.0-18.0); LYMPHOCYTES # (AUTO) 0.8 K/uL (1.0-5.5); LYMPHOCYTES % (AUTO) 14.9 % (20.5-51.5); MEAN CORPUSCULAR HEMOGLOBIN 37 pg (27-31); MEAN CORPUSCULAR HGB CONC 34 % (32-36); MEAN CORPUSCULAR VOLUME 110 fL (79.0-98.0); MONOCYTES # (AUTO) 0.6 K/uL (0.0-1.0); MONOCYTES % (AUTO) 11.8 % (1.7-9.3); NEUTROPHILS # (AUTO) 3.7 K/uL (1.8-7.7); NEUTROPHILS % (AUTO) 68.7 % (40.0-70.0); PLATELET COUNT (AUTO) 120 K/uL (130-430); RED BLOOD CELL COUNT(AUTO) 3.66 MIL/uL (4.2-6.2); RED CELL DISTRIBUTION WIDTH 14.5 % (9.0-15.0); WHITE BLOOD COUNT (AUTO) 5.4 K/uL (4.8-10.8)
[2019-05-28 08:00] VITALS: BP_SYST 129
--- NOTE | 2019-05-28 08:00 | NUR ---
Note Pt sitting up in bed and eating his CCHO diet. Abdominal incision dressing (surgical dressing) intact and dry at this time. Pt has abdominal binder on at this time. IV in right hand intact and patent infusing IVF's well. No needs noted. Call light within reach.
[2019-05-28 08:20] LABS: ALBUMIN 2.2 g/dL (3.4-4.8); CALCIUM 8.4 mg/dL (8.4-11.0); CREATININE 0.69 mg/dL (0.55-1.30); POTASSIUM 4.3 mmol/L (3.5-5.1); TOTAL BILIRUBIN 4.7 mg/dL (0.0-1.0)
[2019-05-28 08:25] LABS: ERYTHROCYTE SEDIMENTATION RATE 71 MM/HR (0-15)
[2019-05-28 08:39] LABS: C-REACTIVE PROTEIN QUANT 11.4 mg/dL (0-0.5)
[2019-05-28] MEDS: FAMOTIDINE 20 MG TABLET PO SCH (08:54)
[2019-05-28] MEDS: CARVEDILOL 12.5 MG TABLET (COREG) PO SCH (08:54)
[2019-05-28] MEDS: LISINOPRIL 5 MG TABLET PO SCH (08:54)
[2019-05-28] MEDS: metFORMIN HCL 500 MG TABLET PO SCH ×2 (08:55→17:33)
[2019-05-28] MEDS: FUROSEMIDE 20 MG TABLET PO SCH (08:55)
--- NOTE | 2019-05-28 11:00 | NUR ---
Note Pt ambulating in hallway with by his side and IV pole with steady gait. No SOB/resp distress or severe abdominal pain/discomfort was noted. Pt now back in bed and denies any needs at this time. Call light within reach.
[2019-05-28] MEDS: INSULIN REGULAR, HUMAN 100 UNITS/ML, 10 ML VIAL (humuLIN R) SUBCUT PRN ×2 (11:24→17:41)
[2019-05-28 11:29] VITALS: BP_SYST 139
--- NOTE | 2019-05-28 14:00 | NUR ---
Note Pt sitting up in bed and in chair next to bed. Pt states pain comes and goes. Pt ambulates to restroom without difficulty at this time. Dr Salguero was paged per pt's request, waiting for call back. Dr Salguero is in surgery at another facility at this time. Pt and his notified. Call light within reach.
[2019-05-28 15:33] VITALS: BP_SYST 109
--- NOTE | 2019-05-28 16:00 | NUR ---
Note Dr Salguero called back and will be coming to see pt later this evening after his surgeries. Pt and his notified. Pt received Morphine IVP per request for abdominal pain when coughing. Pt was instructed to use pillow against his abdomen when coughing. Pt resting in bed. No needs noted at this time. Call light within reach.
[2019-05-28] MEDS ORDERED: HYDR-4274 PO (16:56)
[2019-05-28 19:25] VITALS: BP_SYST 122
--- NOTE | 2019-05-28 19:30 | NUR ---
Note Dr Salguero came to see pt and discharge order given. Pt dressed in street clothes and packed all belongings. Pt and pt's checked side table and drawers for belongings. Pt was checked on q1' and PRN all shift for needs and care. Pt stable.
--- NOTE | 2019-05-28 19:45 | NUR ---
Note Pt was seen by Dr Acosta at 1700 and discharge was given. Pt's right IV was dc'd and site benign. Discharge instructions given and questions/concerns were answered at this time. Pt was given prescription for NORCO PO. Pt stable. Pt has abdominal binder on all shift. Pt off the floor with her and all belongings and discharge paperwork to private car.
== END 2019-05-28 19:43 | disposition home or self-care (01) | DRG 227 ==
LOC: SED 23:01 → SMU 05-25 07:27
PROVIDERS: ADMIT Preventive Medicine Preventive Medicine/Occupational Environmental Medicine; ATTEND Preventive Medicine Preventive Medicine/Occupational Environmental Medicine
PROC: 0WUF0JZ Supplement Abdominal Wall with Synthetic Substitute, Open Approach (ICD-10-PCS; principal; 2019-05-25 20:45)
DX: K43.0 Incisional hernia with obstruction, without gangrene (principal); R65.11 Systemic inflammatory response syndrome (SIRS) of non-infectious origin with acute organ dysfunction; E43 Unspecified severe protein-calorie malnutrition; D69.6 Thrombocytopenia, unspecified; E87.2 Acidosis; E87.1 Hypo-osmolality and hyponatremia; E11.65 Type 2 diabetes mellitus with hyperglycemia; E83.52 Hypercalcemia; R18.8 Other ascites; I48.91 Unspecified atrial fibrillation; K76.0 Fatty (change of) liver, not elsewhere classified; E78.5 Hyperlipidemia, unspecified; E87.6 Hypokalemia; D64.9 Anemia, unspecified; F10.20 Alcohol dependence, uncomplicated; F17.200 Nicotine dependence, unspecified, uncomplicated; K74.60 Unspecified cirrhosis of liver; I10 Essential (primary) hypertension; K80.50 Calculus of bile duct without cholangitis or cholecystitis without obstruction; I25.10 Atherosclerotic heart disease of native coronary artery without angina pectoris; I25.2 Old myocardial infarction; Z90.49 Acquired absence of other specified parts of digestive tract; Z95.5 Presence of coronary angioplasty implant and graft; Z87.81 Personal history of (healed) traumatic fracture; Z79.899 Other long term (current) drug therapy; Z79.84 Long term (current) use of oral hypoglycemic drugs; Z68.26 Body mass index [BMI] 26.0-26.9, adult
CPT/HCPCS: 36415; 71045; 80048; 80053; 81000-TC; 82962; 83605; 84484; 85025; 85610-TC; 85651-TC; 85730-TC; 86140; 87040-TC; 87081; 88302; 93005; 93306; 94010; C1781; C9290; C9399; J0330; J0690; J1100; J1170; J1200; J1815; J2250; J2270; J2405; J2704; J3010; J3490; J7030; J7060; Q9967

== ENCOUNTER 2019-05-29 11:41 | Emergency (ER) | payer MEDICAID ==
[~2019-05-29] VITALS: Ht 180.3 cm; Wt 80.7 kg
[~2019-05-29 11:41] MED LIST changes: +HYDR-4274 PO
[2019-05-29 11:48] VITALS: BP_SYST 100
--- NOTE | 2019-05-29 11:56 | NUR ---
Patient to ER bed 01 to gown for evaluation. Side rails up.
--- NOTE | 2019-05-29 12:04 | NUR ---
pt arrived from home w/ a leaking HUMPHREY site. Sx site drsg is saturated. Pt was dc'd from the hospital yesterday. Pt's PMD asked the pt to come to the ER. S/p hernia sx. Pt is AAOx 4. 9/10 pain on the surgical site
--- NOTE | 2019-05-29 12:34 | NUR ---
ER at bedside examining patient.
[2019-05-29] MEDS ORDERED: ONDANSETRON HCL 4 MG/2 ML VIAL IVP ONE (13:00)
[2019-05-29] MEDS ORDERED: MORPHINE 4 MG/ML INJ. SYRINGE IVP ONE (13:00)
--- NOTE | 2019-05-29 13:05 | NUR ---
Medicated the pt w/ Morphine and Zofran IVP. Will reassess
--- NOTE | 2019-05-29 13:19 | NUR ---
care endorsed to Selvin.
[2019-05-29 13:20] LABS: EOSINOPHILS # (AUTO) 0.1 K/uL (0.0-0.4); HEMATOCRIT 40.6 % (36-54); HEMOGLOBIN 13.7 g/dL (14.0-18.0); LYMPHOCYTES # (AUTO) 0.6 K/uL (1.0-5.5); LYMPHOCYTES % (AUTO) 13.7 % (20.5-51.5); MEAN CORPUSCULAR HEMOGLOBIN 37 pg (27-31); MEAN CORPUSCULAR HGB CONC 34 % (32-36); MEAN CORPUSCULAR VOLUME 110 fL (79.0-98.0); MONOCYTES # (AUTO) 0.6 K/uL (0.0-1.0); MONOCYTES % (AUTO) 13.4 % (1.7-9.3); NEUTROPHILS # (AUTO) 3.2 K/uL (1.8-7.7); NEUTROPHILS % (AUTO) 69.9 % (40.0-70.0); PLATELET COUNT (AUTO) 113 K/uL (130-430); RED BLOOD CELL COUNT(AUTO) 3.71 MIL/uL (4.2-6.2); RED CELL DISTRIBUTION WIDTH 14.1 % (9.0-15.0); WHITE BLOOD COUNT (AUTO) 4.5 K/uL (4.8-10.8)
[2019-05-29 13:30] LABS: CALCIUM 8.3 mg/dL (8.4-11.0); CREATININE 0.57 mg/dL (0.55-1.30); POTASSIUM 3.6 mmol/L (3.5-5.1)
[2019-05-29 13:36] LABS: ALBUMIN 1.9 g/dL (3.4-4.8); TOTAL BILIRUBIN 3.9 mg/dL (0.0-1.0)
--- NOTE | 2019-05-29 14:07 | NUR ---
Pt reports current abd pain 07/05
--- NOTE | 2019-05-29 14:30 | NUR ---
GARDENIA Oden at bedside.
[2019-05-29] MEDS ORDERED: NACL 0.9% 1,000 ML IV ONE (15:15)
[2019-05-29] MEDS ORDERED: HYDROmorphone 1 MG INJ. 1 MG/ML AMPUL IVP ONE (15:15)
[2019-05-29] MEDS ORDERED: HYDROcodone/ACETAMIN 5-325 MG TAB (NORCO/ VICODIN) PO ONE (16:30)
--- NOTE | 2019-05-29 16:30 | NUR ---
medicated the pt w/ [place] per MD order.
[2019-05-29 16:36] VITALS: BP_SYST 112
--- NOTE | 2019-05-29 16:37 | NUR ---
Patient given written and verbal discharge instructions and verbalizes understanding. ER MD discussed with patient the results and treatment provided. Patient in stable condition. ID arm band removed. IV catheter removed intact and dressing applied, no active bleeding. Patient educated on pain management and to follow up with PMD. Pain Scale 3/10. Opportunity for questions provided and answered. Medication side effect fact sheet provided.
== END 2019-05-29 16:36 | disposition home or self-care (01) ==
LOC: SED 11:41
DX: T85.698A Other mechanical complication of other specified internal prosthetic devices, implants and grafts, initial encounter (principal); D61.818 Other pancytopenia; E11.65 Type 2 diabetes mellitus with hyperglycemia; K74.60 Unspecified cirrhosis of liver; E80.6 Other disorders of bilirubin metabolism; I10 Essential (primary) hypertension
CPT/HCPCS: 36415; 80053; 85025; 96361; 96374; 96375; 99283; J1170; J2270; J2405; J7030

== ENCOUNTER 2019-10-20 20:54 | Emergency (ER) | payer MEDICAID, OTHER ==
[~2019-10-20] VITALS: Ht 180.3 cm; Wt 81.6 kg
[2019-10-20 20:54] VITALS: BP_SYST 155
--- NOTE | 2019-10-20 21:04 | NUR ---
Patient to ER bed 3 to gown for evaluation. Side rails up.
--- NOTE | 2019-10-20 21:06 | NUR ---
[facility] BIB by EMS from Home. C/O chest pain x today. Patient states " had chest pain one and half hours ago, Hx heart attack 8 years ago, denies pain this time. " Hx HTN, DM, Hyperlipidemia A/O,X4, denies chest pain this time, No SOB, place patient on compliance monitor.
--- NOTE | 2019-10-20 21:10 | NUR ---
Blood for labwork drawn from [facility]. Patient tolerated well.
[2019-10-20] MEDS ORDERED: ASPIRIN 81 MG TAB.CHEW PO ONE (21:15)
--- NOTE | 2019-10-20 21:19 | NUR ---
X-ray at bedside.
--- NOTE | 2019-10-20 21:21 | NUR ---
Medication reconciliation completed with information provided by patient. Any prior medication reconciliation on file was reviewed and corrected.
[2019-10-20 21:24] LABS: BASOPHILS % (AUTO) 0.9 % (0.0-2.0); EOSINOPHILS # (AUTO) 0.2 K/uL (0.0-0.4); EOSINOPHILS % (AUTO) 3.8 % (0.0-4.0); HEMATOCRIT 44.5 % (36-54); LYMPHOCYTES % (AUTO) 24.2 % (20.5-51.5); MEAN CORPUSCULAR HEMOGLOBIN 35 pg (27-31); MEAN CORPUSCULAR HGB CONC 34 % (32-36); MEAN CORPUSCULAR VOLUME 105 fL (79.0-98.0); MONOCYTES # (AUTO) 0.5 K/uL (0.0-1.0); MONOCYTES % (AUTO) 12.5 % (1.7-9.3); NEUTROPHILS # (AUTO) 2.5 K/uL (1.8-7.7); NEUTROPHILS % (AUTO) 58.6 % (40.0-70.0); RED BLOOD CELL COUNT(AUTO) 4.25 MIL/uL (4.2-6.2); RED CELL DISTRIBUTION WIDTH 13.2 % (9.0-15.0); WHITE BLOOD COUNT (AUTO) 4.3 K/uL (4.8-10.8)
[2019-10-20 21:36] LABS: PLATELET COUNT (AUTO) 79 K/uL (130-430)
[2019-10-20 22:04] LABS: CALCIUM 8.6 mg/dL (8.4-11.0); CREATININE 0.66 mg/dL (0.55-1.30); POTASSIUM 3.9 mmol/L (3.5-5.1)
[2019-10-20 22:10] LABS: ALBUMIN 2.7 g/dL (3.4-4.8); TOTAL BILIRUBIN 2.3 mg/dL (0.0-1.0)
--- NOTE | 2019-10-21 00:19 | NUR ---
Patient signed consent for CT chest w/contrast
[2019-10-21] MEDS ORDERED: IOHEXOL 350 mgI/mL, 150 ML INFUS..BTL IV ONE (00:57)
--- NOTE | 2019-10-21 00:57 | NUR ---
Patient came back from CT scan.
--- NOTE | 2019-10-21 02:04 | NUR ---
Patient state " I want to go home." , spoke with Dr. Gunter about treatment plan, patient refused and agreed to signed AMA.
[2019-10-21 02:15] VITALS: BP_SYST 121
--- NOTE | 2019-10-21 02:15 | NUR ---
Patient does not wish to proceed with medical care recommended by Dr. Gunter. Patient given information related to possible complications, up to and including , which could occur as a result of leaving hospital at this time. Patient verbalizes understanding of risks involved leaving against medical advice. Patient has signed AMA form.
== END 2019-10-21 02:15 | disposition left against medical advice (07) ==
LOC: SED 20:54
DX: R07.89 Other chest pain (principal); I10 Essential (primary) hypertension; E11.9 Type 2 diabetes mellitus without complications; Z86.73 Personal history of transient ischemic attack (TIA), and cerebral infarction without residual deficits; Z79.899 Other long term (current) drug therapy
CPT/HCPCS: 36415; 71045; 71275; 80053; 82550; 83880; 84484; 85025; 85379; 93005; 99285; Q9967

== ENCOUNTER 2019-12-03 12:38 | Emergency (ER) | payer OTHER ==
[~2019-12-03] VITALS: Ht 180.3 cm; Wt 81.6 kg
[2019-12-03 12:46] VITALS: BP_SYST 150
[2019-12-03] MEDS ORDERED: NACL 0.9% 1,000 ML IV ONE (12:53)
[2019-12-03] MEDS ORDERED: KETOROLAC TROMETHAMINE 30 MG VIAL IVP ONE (13:00)
[2019-12-03 13:18] LABS: BASOPHILS % (AUTO) 0.6 % (0.0-2.0); EOSINOPHILS % (AUTO) 0.3 % (0.0-4.0); HEMATOCRIT 43.1 % (36-54); HEMOGLOBIN 14.6 g/dL (14.0-18.0); LYMPHOCYTES # (AUTO) 0.4 K/uL (1.0-5.5); LYMPHOCYTES % (AUTO) 9.7 % (20.5-51.5); MEAN CORPUSCULAR HEMOGLOBIN 36 pg (27-31); MEAN CORPUSCULAR HGB CONC 34 % (32-36); MEAN CORPUSCULAR VOLUME 108 fL (79.0-98.0); MONOCYTES # (AUTO) 0.3 K/uL (0.0-1.0); MONOCYTES % (AUTO) 6.3 % (1.7-9.3); NEUTROPHILS # (AUTO) 3.6 K/uL (1.8-7.7); NEUTROPHILS % (AUTO) 83.1 % (40.0-70.0); PLATELET COUNT (AUTO) 66 K/uL (130-430); RED BLOOD CELL COUNT(AUTO) 4.01 MIL/uL (4.2-6.2); RED CELL DISTRIBUTION WIDTH 13.6 % (9.0-15.0); WHITE BLOOD COUNT (AUTO) 4.4 K/uL (4.8-10.8)
[2019-12-03 13:51] LABS: INR 1.1 (0.80-1.20)
[2019-12-03 14:07] LABS: CALCIUM 8.7 mg/dL (8.4-11.0); CREATININE 0.8 mg/dL (0.55-1.30); POTASSIUM 4.2 mmol/L (3.5-5.1)
[2019-12-03 14:08] LABS: ALBUMIN 2.3 g/dL (3.4-4.8); TOTAL BILIRUBIN 6.1 mg/dL (0.0-1.0)
[2019-12-03] MEDS ORDERED: MORPHINE 2 MG/ML INJ. SYRINGE IVP ONE (14:30)
[2019-12-03 15:30] VITALS: BP_SYST 149
== END 2019-12-03 15:35 | disposition home or self-care (01) ==
LOC: SED 12:38
DX: R53.1 Weakness (principal); E11.65 Type 2 diabetes mellitus with hyperglycemia; I10 Essential (primary) hypertension; F17.200 Nicotine dependence, unspecified, uncomplicated; Z86.73 Personal history of transient ischemic attack (TIA), and cerebral infarction without residual deficits; Z79.899 Other long term (current) drug therapy
CPT/HCPCS: 36415; 70450; 71045; 74176; 80053; 83690; 84484; 85025; 85610; 85730; 87040; 93005; 96361; 96374; 96375; 99285; J1885; J2270; J7030

== ENCOUNTER 2019-12-19 01:51 | Emergency (ER) | payer OTHER ==
[~2019-12-19] VITALS: Ht 180.3 cm; Wt 81.6 kg
[2019-12-19 02:00] VITALS: BP_SYST 141
--- NOTE | 2019-12-19 02:01 | NUR ---
Patient to ER bed 6 to gown for evaluation. Side rails up. Report given to Landon ENCARNACION.
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
--- NOTE | 2019-12-19 02:06 | NUR ---
ER at bedside examining patient.
[2019-12-19] MEDS ORDERED: DIPH-TET-PERTUS Vaccine 0.5 ML VIAL (ADACEL) I.M. ONE (02:15)
--- NOTE | 2019-12-19 02:20 | NUR ---
Patient has a 2 cm laceration to right side occipital area. Dr. Alcala applied 4 mickey using sterile technique. Edges well approximated. Site cleansed with normal saline and iodine. Dressing of gauze applied to site. No bleeding noted. Pt tolerated well.
--- NOTE | 2019-12-19 02:29 | NUR ---
Patient does not wish to proceed with medical care recommended by Dr. Alcala. Patient given information related to possible complications, up to and including , which could occur as a result of leaving hospital at this time. Patient verbalizes understanding of risks involved leaving against medical advice. Patient has signed AMA form.
== END 2019-12-19 02:29 | disposition home or self-care (01) ==
LOC: SED 01:51
DX: S01.01XA Laceration without foreign body of scalp, initial encounter (principal); I10 Essential (primary) hypertension; E11.9 Type 2 diabetes mellitus without complications; Z79.84 Long term (current) use of oral hypoglycemic drugs; W22.8XXA Striking against or struck by other objects, initial encounter; Y93.89 Activity, other specified; Y92.89 Other specified places as the place of occurrence of the external cause; Y99.8 Other external cause status
CPT/HCPCS: 90715; 99283; 99284

== ENCOUNTER 2019-12-22 18:42 | Emergency (ER) | payer OTHER ==
[~2019-12-22] VITALS: Ht 180.3 cm; Wt 78.0 kg
[2019-12-22 18:59] VITALS: BP_SYST 124
[2019-12-22] MEDS ORDERED: KETOROLAC TROMETHAMINE 30 MG VIAL IVP ONE (19:15)
[2019-12-22 19:37] LABS: BASOPHILS % (AUTO) 0.6 % (0.0-2.0); EOSINOPHILS # (AUTO) 0.1 K/uL (0.0-0.4); EOSINOPHILS % (AUTO) 1.4 % (0.0-4.0); HEMOGLOBIN 12.5 g/dL (14.0-18.0); LYMPHOCYTES % (AUTO) 16.5 % (20.5-51.5); MEAN CORPUSCULAR HEMOGLOBIN 38 pg (27-31); MEAN CORPUSCULAR HGB CONC 35 % (32-36); MEAN CORPUSCULAR VOLUME 108 fL (79.0-98.0); MONOCYTES # (AUTO) 0.6 K/uL (0.0-1.0); MONOCYTES % (AUTO) 10.2 % (1.7-9.3); NEUTROPHILS # (AUTO) 4.4 K/uL (1.8-7.7); NEUTROPHILS % (AUTO) 71.3 % (40.0-70.0); PLATELET COUNT (AUTO) 84 K/uL (130-430); RED BLOOD CELL COUNT(AUTO) 3.33 MIL/uL (4.2-6.2); RED CELL DISTRIBUTION WIDTH 14.2 % (9.0-15.0); WHITE BLOOD COUNT (AUTO) 6.2 K/uL (4.8-10.8)
[2019-12-22 19:48] LABS: CALCIUM 7.5 mg/dL (8.4-11.0); CREATININE 0.92 mg/dL (0.55-1.30); POTASSIUM 3.8 mmol/L (3.5-5.1)
[2019-12-22 19:57] LABS: ALBUMIN 1.8 g/dL (3.4-4.8); TOTAL BILIRUBIN 11.1 mg/dL (0.0-1.0)
[2019-12-22 21:40] VITALS: BP_SYST 129
== END 2019-12-22 21:40 | disposition home or self-care (01) ==
LOC: SED 18:42
DX: E87.1 Hypo-osmolality and hyponatremia (principal); R42 Dizziness and giddiness; I10 Essential (primary) hypertension; E11.9 Type 2 diabetes mellitus without complications; Z79.899 Other long term (current) drug therapy
CPT/HCPCS: 36415; 70450; 80053; 82140; 85025; 87040; 96374; 99284; J1885

== ENCOUNTER 2019-12-25 16:56 | Emergency (ER) | payer OTHER ==
[~2019-12-25] VITALS: Ht 180.3 cm; Wt 74.8 kg
[2019-12-25 16:58] VITALS: BP_SYST 115
--- NOTE | 2019-12-25 17:02 | NUR ---
Patient to ER bed 03 to gown for evaluation. Side rails up.
--- NOTE | 2019-12-25 17:03 | NUR ---
PT AAO AND AMBULATORY REPORTING THAT 4 LOLA WERE PLACED LAST FRIDAY. PT HERE FOR STAPLE REMOVAL.
--- NOTE | 2019-12-25 17:04 | NUR ---
ER Dr. KHAN at bedside examining patient and for suture removal.
--- NOTE | 2019-12-25 17:09 | NUR ---
Patient given written and verbal discharge instructions and verbalizes understanding. DR. BILL VARNER MD discussed with patient the results and treatment provided. Patient in stable condition. ID arm band removed.Patient educated on pain management and to follow up with PMD. Pain Scale 0/10.Opportunity for questions provided and answered.
[2019-12-25 17:10] VITALS: BP_SYST 115
== END 2019-12-25 17:09 | disposition home or self-care (01) ==
LOC: SED 16:56
DX: S01.01XD Laceration without foreign body of scalp, subsequent encounter (principal); I10 Essential (primary) hypertension; E11.9 Type 2 diabetes mellitus without complications; Z79.899 Other long term (current) drug therapy; X58.XXXD Exposure to other specified factors, subsequent encounter
CPT/HCPCS: 99281

== ENCOUNTER 2020-01-06 11:31 | Inpatient (IN) | payer OTHER ==
[~2020-01-06] VITALS: Ht 180.3 cm; Wt 83.9 kg
[2020-01-06 11:31] VITALS: BP_SYST 159
--- NOTE | 2020-01-06 11:31 | NUR ---
BROUGHT BACK TO BED #4 VIA WHEELCHAIR, PLACED IN BED #4 AND TRIAGED. REPORT GIVEN TO TI
--- NOTE | 2020-01-06 11:51 | NUR ---
Pt awake and able to communicate needs well. In [facility] with side rails up. Monitor in use.
--- NOTE | 2020-01-06 11:53 | NUR ---
ER Dr. Chen at bedside examining patient.
[2020-01-06] MEDS ORDERED: MORPHINE 2 MG/ML INJ. SYRINGE IVP ONE (12:00)
[2020-01-06 12:24] LABS: BASOPHILS # (AUTO) 0.1 K/uL (0.0-0.2); BASOPHILS % (AUTO) 1.2 % (0.0-2.0); EOSINOPHILS % (AUTO) 0.7 % (0.0-4.0); HEMATOCRIT 36.7 % (36-54); LYMPHOCYTES # (AUTO) 0.6 K/uL (1.0-5.5); LYMPHOCYTES % (AUTO) 7.9 % (20.5-51.5); MEAN CORPUSCULAR HEMOGLOBIN 40 pg (27-31); MEAN CORPUSCULAR HGB CONC 36 % (32-36); MEAN CORPUSCULAR VOLUME 112 fL (79.0-98.0); MONOCYTES # (AUTO) 0.5 K/uL (0.0-1.0); MONOCYTES % (AUTO) 7.3 % (1.7-9.3); NEUTROPHILS # (AUTO) 5.8 K/uL (1.8-7.7); NEUTROPHILS % (AUTO) 82.9 % (40.0-70.0); PLATELET COUNT (AUTO) 86 K/uL (130-430); RED BLOOD CELL COUNT(AUTO) 3.28 MIL/uL (4.2-6.2); RED CELL DISTRIBUTION WIDTH 14.2 % (9.0-15.0)
--- NOTE | 2020-01-06 12:32 | NUR ---
# 20 gauge angiocath placed to left arm. Use of asceptic technique. Opsite placed over site. Blood return noted. Blood for lab drawn from site. Flushed with 10 cc of normal saline. No evidence of infiltration noted. Patient tolerated well.
[2020-01-06 12:38] LABS: CALCIUM 7.8 mg/dL (8.4-11.0); CREATININE 0.63 mg/dL (0.55-1.30); POTASSIUM 3.7 mmol/L (3.5-5.1)
[2020-01-06 12:41] LABS: INR 1.3 (0.80-1.20); PROTHROMBIN TIME 12.9 SECS (9.5-12.5)
[2020-01-06 12:43] LABS: ALBUMIN 1.7 g/dL (3.4-4.8); TOTAL BILIRUBIN 13.1 mg/dL (0.0-1.0)
[2020-01-06] MEDS ORDERED: NACL 0.9% 2,000 ML IV ONE (13:00)
[2020-01-06] MEDS ORDERED: FOLIC ACID 1 MG, THIAMINE HCL 100 MG, MAGNESIUM SULFATE 1 GM, MVI 10 ML in NACL 0.9% 1,... IV ONE (13:00)
--- NOTE | 2020-01-06 13:00 | NUR ---
Called pharmacy to request banana bag, will deliver to ER.
[2020-01-06] MEDS ORDERED: THIAMINE HCL 100 MG, MAGNESIUM SULFATE 1 GM in NS 100 ML IV ONE (13:15)
[2020-01-06] MEDS ORDERED: FOLIC ACID 1 MG, MVI 10 ML in NACL 0.9% 1,000 ML IV ONE (13:15)
[2020-01-06] MEDS ORDERED: FOLIC ACID 1 MG, THIAMINE HCL 100 MG, MAGNESIUM SULFATE 1 GM, MVI 10 ML in NACL 0.9% 1,... IV SCH (14:30)
[2020-01-06] MEDS ORDERED: NALOXONE HCL 0.4 MG/ML AMP (NARCAN) IVP PRN (16:00)
--- NOTE | 2020-01-06 16:15 | NUR ---
CONSULTATION PAGED/CALLED Reason for Consultation: [] ALCOHOL DEPENDENCY Person Who was Notified: [] DR LIND (CALLED HIM ON HIS CELL) Consulting Physician: [] DR LIND Avionics Supervisor Specialty: [] PSYCH Ordering Physician: [] DR LIU
--- NOTE | 2020-01-06 16:38 | NUR ---
Pt alert and oriented. Denies pain at this time. Urinated to urinal. VSS
[2020-01-06 16:57] LABS: BILIRUBIN,URINE 3+ (NEGATIVE); BLOOD, URINE NEGATIVE (NEGATIVE); CLARITY/URINE CLEAR (CLEAR); GLUCOSE,URINE 3+ (NEGATIVE); KETONES,URINE TRACE (NEGATIVE); LEUKOCYTE ESTERASE ,URINE NEGATIVE (NEGATIVE); NITRITE, URINE NEGATIVE (NEGATIVE); PROTEIN URINE NEGATIVE (NEGATIVE)
[2020-01-06 17:33] LABS: COLOR,URINE AMBER (YELLOW)
--- NOTE | 2020-01-06 17:36 | NUR ---
Admission Note Received patient from ER with diagnosis of Hyponatremia and Lactic Acidosis.Place on Telemetry. Initial Plan of Care discussed-patient verbalized understanding. Oriented to room, call light, pain management and safety.
--- NOTE | 2020-01-06 17:37 | NUR ---
Patient will be admitted to care of [facility]. Admitted to Tele unit. Will go to room 114A. Belongings list completed. Complete and up to date summary report printed. SBAR report to be given at bedside with opportunity for questions.
[2020-01-06 17:41] VITALS: BP_SYST 146
[2020-01-06 17:42] VITALS: BP_SYST 146
[2020-01-06 17:54] LABS: BACTERIA,URINE FEW /HPF (None Seen); COARSE GRANULAR CASTS,URINE 0-10 /LPF (None Seen); FINE GRANULAR CASTS,URINE 0-10 /LPF (None Seen); MUCUS,URINE 1+ /LPF (None Seen); RBC,URINE 0-3 /HPF (0-3); WBC,URINE 0-3 /HPF (0-3)
[2020-01-06] MEDS: metFORMIN HCL 500 MG TABLET PO SCH (18:00)
[2020-01-06] MEDS: HYDROcodone/ACETAMIN 10-325 MG TAB PO PRN (18:06)
--- NOTE | 2020-01-06 18:06 | NUR ---
NORCO GIVEN Patient c/o right head pain 10/05. Thurston 10/325mg 1 tab given as ordered. Safety measure maintained. Call light within reached. Bed locked in low position, side rails up, bed alarm on. Continue to monitor.
[2020-01-06] MEDS: INSULIN REGULAR, HUMAN 100 UNITS/ML, 10 ML VIAL (humuLIN R) SUBCUT PRN ×2 (18:07→20:45)
--- NOTE | 2020-01-06 18:54 | NUR ---
CLOSING NOTE Patient resting in the bed. No acute distress. Skin warm and dry to touch. IV intact to LFA, no redness, no swelling, no drainage. Continue on banana bag at 50ml/hr from ER, infusing well. Safety measure maintained. Call light within reached. Bed locked in low position, side rails up, bed alarm on. will endorse to night nurse.
[2020-01-06 20:20] VITALS: BP_SYST 139
--- NOTE | 2020-01-06 20:20 | NUR ---
INITIAL NOTES PATIENT IS STABLE AND LAYING IN BED. NO S/S OF RESPIRATORY DISTRESS NOTED. CALL LIGHT IN REACH. PATIENT SUCCESSFULLY DEMONSTRATES USAGE OF CALL LIGHT. BED IS LOCKED, AND AT THE LOWEST POSITION. PATIENT EDUCATED ON BED ALARM. PT REFUSED. PLAN OF CARE IS DISCUSSED WITH PATIENT. FALL, SAFETY, ASPIRATION, AND RESPIRATORY PRECAUTIONS WILL BE IN PLACE THROUGHOUT THE SHIFT.
[2020-01-06] MEDS: FAMOTIDINE 20 MG TABLET PO SCH (20:46)
[2020-01-06] MEDS: CARVEDILOL 12.5 MG TABLET (COREG) PO SCH (20:46)
--- NOTE | 2020-01-06 22:20 | NUR ---
PATIENT IS STABLE AND SLEEPING IN BED. NO S/S OF RESPIRATORY DISTRESS NOTED.
[2020-01-07] VITALS (7 sets, daily range): BP systolic 79–119
--- NOTE | 2020-01-07 00:32 | NUR ---
PATIENT IS STABLE AND SLEEPING IN BED. NO S/S OF RESPIRATORY DISTRESS NOTED.
--- NOTE | 2020-01-07 02:32 | NUR ---
PATIENT IS STABLE AN LAYING IN BED. NO S/S OF RESPIRATORY DISTRESS NOTED.
[2020-01-07] MEDS: HYDROcodone/ACETAMIN 10-325 MG TAB PO PRN ×3 (02:48→20:58)
--- NOTE | 2020-01-07 04:32 | NUR ---
PATIENT IS STABLE AND SLEEPING IN BED. NO S/S OF RESPIRATORY DISTRESS NOTED. CALL LIGHT IN REACH.
--- NOTE | 2020-01-07 06:51 | NUR ---
CLOSING NOTES PATIENT IS STABLE AND LAYING IN BE. NO S/S OF RESPIRATORY DISTRESS NOTED. CALL LIGHT IN REACH. BED IS LOCKED, AND AT THE LOWEST POSITION. FALL, SAFETY, ASPIRATION, AND RESPIRATORY PRECAUTIONS HAS BEEN IN PLACE THROUGHOUT THE SHIFT. WILL CONTINUE TO MONITOR UNTIL SBAR REPORT IS ENDORSE TO AM NURSE BY BEDSIDE.
[2020-01-07 07:23] LABS: BASOPHILS # (AUTO) 0.1 K/uL (0.0-0.2); BASOPHILS % (AUTO) 2.3 % (0.0-2.0); EOSINOPHILS # (AUTO) 0.2 K/uL (0.0-0.4); EOSINOPHILS % (AUTO) 3.3 % (0.0-4.0); HEMATOCRIT 34.7 % (36-54); HEMOGLOBIN 12.2 g/dL (14.0-18.0); LYMPHOCYTES # (AUTO) 0.6 K/uL (1.0-5.5); LYMPHOCYTES % (AUTO) 10.3 % (20.5-51.5); MEAN CORPUSCULAR HEMOGLOBIN 39 pg (27-31); MEAN CORPUSCULAR HGB CONC 35 % (32-36); MEAN CORPUSCULAR VOLUME 111 fL (79.0-98.0); MONOCYTES # (AUTO) 0.5 K/uL (0.0-1.0); MONOCYTES % (AUTO) 8.8 % (1.7-9.3); NEUTROPHILS # (AUTO) 4.3 K/uL (1.8-7.7); NEUTROPHILS % (AUTO) 75.3 % (40.0-70.0); PLATELET COUNT (AUTO) 77 K/uL (130-430); RED BLOOD CELL COUNT(AUTO) 3.13 MIL/uL (4.2-6.2); RED CELL DISTRIBUTION WIDTH 14.8 % (9.0-15.0); WHITE BLOOD COUNT (AUTO) 5.7 K/uL (4.8-10.8)
--- NOTE | 2020-01-07 07:35 | NUR ---
Opening note patient resting in bed, a/o x 4, no distress noted, assessment complete, educated patient on plan of care, safety measures put in place, bed locked and at lowest position, call light within reach, will monitor patient for any changes.
[2020-01-07 07:45] LABS: CALCIUM 7.8 mg/dL (8.4-11.0); CREATININE 0.54 mg/dL (0.55-1.30)
[2020-01-07 07:48] LABS: POTASSIUM 4.3 mmol/L (3.5-5.1)
--- NOTE | 2020-01-07 08:20 | NUR ---
Nutrition Update Asher scale 16 noted. Pt admitted for hyponatremia, lactic acidosis. Diet: Consistent Carbohydrate Diet BMI: 25.8 kg/m2 RD to follow per nutrition care standards.
[2020-01-07] MEDS: metFORMIN HCL 500 MG TABLET PO SCH ×3 (08:30→17:02)
[2020-01-07] MEDS: FAMOTIDINE 20 MG TABLET PO SCH ×2 (08:39→21:57)
[2020-01-07] MEDS: CARVEDILOL 12.5 MG TABLET (COREG) PO SCH ×3 (08:41→21:57)
--- NOTE | 2020-01-07 08:41 | NUR ---
RN Rounds/Medication patient in bed resting, no distress noted, administered medications, patient tolerated well, no other needs at this time. safety measures maintained, bed locked and at lowest position, call light within reach.
[2020-01-07] MEDS: lisinopriL 5 MG TABLET PO SCH (08:42)
[2020-01-07] MEDS: FUROSEMIDE 20 MG TABLET PO SCH (08:42)
--- NOTE | 2020-01-07 09:13 | NUR ---
RN Rounds/medication patient resting in bed complains of pain, administered pain medication, will reassess pain, safety measures maintained, will continue to monitor patient.
[2020-01-07] MEDS: INSULIN REGULAR, HUMAN 100 UNITS/ML, 10 ML VIAL (humuLIN R) SUBCUT PRN ×3 (11:24→23:19)
--- NOTE | 2020-01-07 13:00 | NUR ---
Low blood pressure/Fluid bolus informed Dr. Jack of low blood pressures, see vital signs for readings, received and carried out 500ml normal saline bolus, patient tolerating well, continuing to monitor.
[2020-01-07] MEDS ORDERED: NS 500 ML IV ONE (13:45)
[2020-01-07] MEDS: NACL 0.9% 1,000 ML IV SCH (14:09)
--- NOTE | 2020-01-07 14:10 | NUR ---
Dr. Jack rounds assessed patient, ordered for continuous IVF, order noted and carried out at this time, continuing to monitor patient.
--- NOTE | 2020-01-07 14:34 | NUR ---
Neck Pinner: met with pt. to conduct a DCPA and Social Work Interview. MEMORY CARE PROGRAM DIRECTOR met with pt. bedside. Pt. was awake and alert and agreed to this interview. Pt. maintained eye contact, answered questions appropriately, was friendly and easily participated in this interview. Pt. confirmed all the demographic information. He did not want to add anyone else other than his as an emergency contact. When asked about having a PCP, pt. stated he has been having trouble with his insurance so his neighbor who is a rep. for [employer] is going to assist him in applying for [employer]. During the interview, MEMORY CARE PROGRAM DIRECTOR asked him about using a glucometer. Pt. stated he has all his medical equipment at home, wc, walker,cane and glucometer. MEMORY CARE PROGRAM DIRECTOR asked if he was good at checking his blood sugars, pt. laughed and responded, "No!". Pt is suppose to check his blood 3 x daily. He only checks once after breakfast. He said he does not like all the holes in his fingers. MEMORY CARE PROGRAM DIRECTOR brought up the high level of Ethol. and asked pt. can speak on this topic. Pt. stated he just drank one beer that lead into 2 than 3 and 4 beers. After 4 beers pt. stated he goes to bed. He said now his goal is to not go to the liquor store and stay home. Pt. stated with Rajeevid, he and his don't go anywhere. MEMORY CARE PROGRAM DIRECTOR asked who lives at home with him. Pt. stated his , his two boys, his daughter and granddaughter. They are all in agreement to not have alcohol in the home. Pt. said he doesn't drink anymore. MEMORY CARE PROGRAM DIRECTOR reminded him that he had a high Etho level since yesterday. He is not drinking because he is in the hospital. Pt. said when he gets home he is not going to drink and everyone in the house agrees to not have alcohol in the home. Pt. added he is Jew and is going to speak to a repulping supervisor to gather strength and resources. When asked, pt. does not want to participate in AA (possibly zoom or speaking over the phone). He stated he has participated in the past and walked away stating, "Its a bunch of Bull Shit". MEMORY CARE PROGRAM DIRECTOR shared with pt. he can access services on the back of his medical card for a PCP and alcohol tx. Pt. denied having a mental health Dx. as well as denied feeling suicidal. Pt. stated he did not need anything. MEMORY CARE PROGRAM DIRECTOR will remain available as needed.
[2020-01-07] MEDS: THIAMINE HCL 100 MG, MAGNESIUM SULFATE 1 GM in NS 100 ML IV SCH (16:52)
--- NOTE | 2020-01-07 17:04 | NUR ---
RN rounds/Medication patient resting in bed, still has low BP, MD aware, educated on medications uses and potential side effects, he verbalized understanding and tolerated well, IV line is patent and infusing well, blood glucose checked and insulin coverage provided per MD orders, continuing to monitor, bed in lowest position, two side rails up, call light within reach, fall and aspiration precautions in place.
[2020-01-07] MEDS: FOLIC ACID 1 MG, MVI 10 ML in NACL 0.9% 1,000 ML IV SCH (17:57)
--- NOTE | 2020-01-07 18:34 | NUR ---
RN Rounds/Accuchecks patient laying in bed resting and awake, performed accuchecks, administered medication, patient tolerated well, will continue to monitor patient for any changes, safety measures maintained. Addendum: 01/07/20 at 1836 by Arlene Gonzalez RN Correct time is for 1122
--- NOTE | 2020-01-07 18:49 | NUR ---
Closing Note patient resting in bed, a/o x 4, no distress noted, respirations even and unlabored, IV site is patent and infusing well, patient is tolerating oxygen on room air, patient is in stable condition, safety measures maintained through out shift, fall and aspiration precautions maintained through out shift, bed locked and at lowest position, call light within reach, will endorse patient care to oncoming night guard nurse.
[2020-01-08 00:30] VITALS: BP_SYST 103
[2020-01-08] MEDS: NACL 0.9% 1,000 ML IV SCH ×3 (03:56→20:15)
[2020-01-08 06:37] LABS: BASOPHILS # (AUTO) 0.1 K/uL (0.0-0.2); BASOPHILS % (AUTO) 1.5 % (0.0-2.0); EOSINOPHILS # (AUTO) 0.2 K/uL (0.0-0.4); EOSINOPHILS % (AUTO) 3.6 % (0.0-4.0); HEMATOCRIT 36.4 % (36-54); HEMOGLOBIN 12.7 g/dL (14.0-18.0); LYMPHOCYTES # (AUTO) 0.8 K/uL (1.0-5.5); LYMPHOCYTES % (AUTO) 12.5 % (20.5-51.5); MEAN CORPUSCULAR HEMOGLOBIN 39 pg (27-31); MEAN CORPUSCULAR HGB CONC 35 % (32-36); MEAN CORPUSCULAR VOLUME 113 fL (79.0-98.0); MONOCYTES # (AUTO) 0.6 K/uL (0.0-1.0); MONOCYTES % (AUTO) 9.2 % (1.7-9.3); NEUTROPHILS # (AUTO) 4.4 K/uL (1.8-7.7); NEUTROPHILS % (AUTO) 73.2 % (40.0-70.0); PLATELET COUNT (AUTO) 85 K/uL (130-430); RED BLOOD CELL COUNT(AUTO) 3.22 MIL/uL (4.2-6.2); RED CELL DISTRIBUTION WIDTH 14.6 % (9.0-15.0)
[2020-01-08 06:43] LABS: CALCIUM 7.9 mg/dL (8.4-11.0); CREATININE 0.64 mg/dL (0.55-1.30); POTASSIUM 3.9 mmol/L (3.5-5.1)
[2020-01-08] MEDS: FAMOTIDINE 20 MG TABLET PO SCH ×2 (08:20→21:43)
[2020-01-08] MEDS: FUROSEMIDE 20 MG TABLET PO SCH (08:20)
[2020-01-08] MEDS: chlordiazePOXIDE HCL 25 MG CAPSULE PO PRN ×3 (08:21→21:51)
[2020-01-08] MEDS: HYDROcodone/ACETAMIN 10-325 MG TAB PO PRN (08:22)
[2020-01-08 08:32] VITALS: BP_SYST 100
[2020-01-08] MEDS: metFORMIN HCL 500 MG TABLET PO SCH ×2 (08:32→16:50)
[2020-01-08 08:46] VITALS: BP_SYST 100
--- NOTE | 2020-01-08 08:56 | NUR ---
OPENING NOTES PT IN BED, ACCUCHECK 110, HAD BREAKFAST THIS AM WITH GOOD APPETITE. C/O OF HEADACHE DUE TO PREVIOUS FALL 10/05, PAIN MEDS GIVEN, COMFORT PROVIDED. WITH DRY SCAB POSTERIOR HEAD DUE TO FALL 2 WEEKS AGO PER MEDICAL RECORDS. CONTINUE TO ENCOURAGED TO CALL FOR HELP.
--- NOTE | 2020-01-08 10:00 | NUR ---
CARE ASSUMED. A/OX4, FORGETFUL. IV ON LEFT FA, #20, INFUSING BANANA BAG AT THIS TIME. AMBULATORY. INSTRUCTED TO USE CALL LIGHT IN PLACE, BED LOCKED AT THE LOWEST POSITION; WILL CONTINUE TO MONITOR.
--- NOTE | 2020-01-08 11:31 | NUR ---
BLOOD SUGAR 146. NO COVERAGE NEEDED AT THIS TIME.
[2020-01-08] MEDS: lisinopriL 5 MG TABLET PO SCH (13:00)
[2020-01-08] MEDS: CARVEDILOL 12.5 MG TABLET (COREG) PO SCH ×2 (13:00→20:38)
[2020-01-08 13:13] VITALS: BP_SYST 92
--- NOTE | 2020-01-08 13:30 | NUR ---
PATIENT ATTEMPTS TO WALK OUT, AND STATES "WHITE KID BUFFER HAS DISCHARGED ME". HE IS REORIENTED THAT THE DOCTOR IS THE ONE WHO CAN DISCHARGE,AND HE HAS NOT GIVEN DISCHARGE ORDER YET
--- NOTE | 2020-01-08 14:10 | NUR ---
Family of the patient is seeing patient from outside of the hospital through the windows.
[2020-01-08 16:00] VITALS: BP_SYST 93
--- NOTE | 2020-01-08 16:40 | NUR ---
blood sugar 100. no coverage needed. Glucotrol is held, and Dr. Avila is notified. He is agreeable with the decision.
[2020-01-08] MEDS: FOLIC ACID 1 MG, MVI 10 ML in NACL 0.9% 1,000 ML IV SCH (16:43)
[2020-01-08] MEDS: THIAMINE HCL 100 MG, MAGNESIUM SULFATE 1 GM in NS 100 ML IV SCH (16:44)
[2020-01-08 20:00] VITALS: BP_SYST 93
[2020-01-09 01:34] VITALS: BP_SYST 90
[2020-01-09] MEDS: LORazepam 1 MG TABLET PO PRN ×2 (02:33→08:54)
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
[2020-01-09 07:10] LABS: ALBUMIN 1.8 g/dL (3.4-4.8); CREATININE 0.75 mg/dL (0.55-1.30); POTASSIUM 3.7 mmol/L (3.5-5.1)
--- NOTE | 2020-01-09 07:20 | NUR ---
Opening Note patient sitting at nurses station, a / o x 1, reoriented patient to place, time and event, denies any pain, IV line patent, assessment complete, educated patient on plan of care, will monitor patient for any changes.
[2020-01-09 07:44] VITALS: BP_SYST 123
[2020-01-09 07:47] LABS: TOTAL BILIRUBIN 15.1 mg/dL (0.0-1.0)
[2020-01-09 08:17] LABS: BASOPHILS # (AUTO) 0.2 K/uL (0.0-0.2); BASOPHILS % (AUTO) 2.4 % (0.0-2.0); EOSINOPHILS # (AUTO) 0.2 K/uL (0.0-0.4); EOSINOPHILS % (AUTO) 2.5 % (0.0-4.0); HEMOGLOBIN 13.4 g/dL (14.0-18.0); LYMPHOCYTES # (AUTO) 0.8 K/uL (1.0-5.5); LYMPHOCYTES % (AUTO) 8.6 % (20.5-51.5); MEAN CORPUSCULAR HEMOGLOBIN 40 pg (27-31); MEAN CORPUSCULAR HGB CONC 35 % (32-36); MEAN CORPUSCULAR VOLUME 114 fL (79.0-98.0); MONOCYTES % (AUTO) 10.2 % (1.7-9.3); NEUTROPHILS # (AUTO) 7.2 K/uL (1.8-7.7); NEUTROPHILS % (AUTO) 76.3 % (40.0-70.0); PLATELET COUNT (AUTO) 123 K/uL (130-430); RED BLOOD CELL COUNT(AUTO) 3.34 MIL/uL (4.2-6.2); RED CELL DISTRIBUTION WIDTH 14.4 % (9.0-15.0); WHITE BLOOD COUNT (AUTO) 9.5 K/uL (4.8-10.8)
[2020-01-09] MEDS: metFORMIN HCL 500 MG TABLET PO SCH ×2 (08:30→17:04)
[2020-01-09] MEDS: FAMOTIDINE 20 MG TABLET PO SCH ×2 (08:51→22:01)
[2020-01-09] MEDS: lisinopriL 5 MG TABLET PO SCH (08:53)
[2020-01-09] MEDS: FUROSEMIDE 20 MG TABLET PO SCH (08:54)
[2020-01-09] MEDS: CARVEDILOL 12.5 MG TABLET (COREG) PO SCH ×2 (08:55→22:00)
[2020-01-09] MEDS: NACL 0.9% 1,000 ML IV SCH ×3 (09:02→22:21)
--- NOTE | 2020-01-09 09:04 | NUR ---
RN Rounds/Medication patient in bed and awake, respirations even and unlabored, patient tolerated medication well, patient refused some medication, educated patient on medication usage and possible side effects, patient continued to refuse, will monitor patient for any changes, safety measures put in place, bed locked and at lowest position, call light within reach.
--- NOTE | 2020-01-09 09:39 | NUR ---
CONSULTATION PAGED/CALLED Reason for Consultation: ELEVATED TOTAL BILI Person Who was Notified: LUCIANA Consulting Physician: MINE Painter [employer] Specialty: GI Ordering Physician: TATYANA
--- NOTE | 2020-01-09 10:11 | NUR ---
RN rounds patient resting in bed, eyes closed, breathing is even and unlabored, no signs of distress, prior to this patient refused telemetry monitoring, will continue to encourage/educate the patient to wear the manager sql, continuing to monitor patient, bed in lowest position, three side rails up, bed alarm on, call light within reach, bed close to nursing station, fall and aspiration precautions in place.
--- NOTE | 2020-01-09 10:30 | NUR ---
Spoke with family patient's sister Carolina Douglas regarding plan of care, Carolina stated she understood that the patient was confused and agitated, will update the family as needed. Carolina Douglas [phone]
--- NOTE | 2020-01-09 11:19 | NUR ---
RN Rounds/Accucheck patient resting in bed agitated, performed accuchecks, patient cooperated, will continue to monitor patient for any changes, safety measures maintained, bed locked and in lowest position, call light within reach.
--- NOTE | 2020-01-09 11:53 | NUR ---
Patient agitated attempting to get out of bed, reorientation was provided frequently, patient is uncooperative and attempting to hit the staff, patient back in bed now and placed with a sitter, paged Dr. Avila for orders, patient reoriented, bed in lowest position, three side rails up, bed alarm on, fall and aspiration precautions in place.
--- NOTE | 2020-01-09 12:10 | NUR ---
Offered Librium to the patient at this time, educated on benefits and uses and patient adamantly refused at this time, continuing to monitor patient. Fall and aspiration precautions in place.
[2020-01-09 12:18] VITALS: BP_SYST 103
--- NOTE | 2020-01-09 12:31 | NUR ---
Family educated Spoke with patient's sister Carolina Douglas and his Meg Pelaez over the phone and educated them on the use of restraints and the necessity for it at this time, discussed alternate measures such as medications provided/offered and that alternate measures were not effective, they verbalized understanding at this time.
[2020-01-09] MEDS: THIAMINE HCL 100 MG, MAGNESIUM SULFATE 1 GM in NS 100 ML IV SCH (16:05)
--- NOTE | 2020-01-09 16:05 | NUR ---
RN Rounds/Medication patient in bed resting, no signs of distress respirations even and unlabored, administered medication ordered per MD, patient tolerated well, will continue to monitor, safety measures maintained.
[2020-01-09] MEDS: chlordiazePOXIDE HCL 25 MG CAPSULE PO PRN (16:14)
[2020-01-09 16:18] VITALS: BP_SYST 112
--- NOTE | 2020-01-09 17:32 | NUR ---
Blood sugar initial blood sugar was 70, gave patient 2 boxes of orange juice, rechecked blood sugar after 20 minutes and blood sugar was 95, will monitor patient and ensure patient eats dinner.
--- NOTE | 2020-01-09 18:57 | NUR ---
Closing note patient resting in bed, a/o x 1, reoriented patient to place, time, and event, IV site is patent and infusing well, patient is tolerating oxygen on room air, safety measures maintained through out shift, fall/aspiration precautions maintained, bed locked, call light within reach, will endorse patient care to oncoming hourly shift nurse.
[2020-01-09 19:57] VITALS: BP_SYST 113
[2020-01-09] MEDS: chlordiazePOXIDE HCL 25 MG CAPSULE PO SCH (22:00)
[2020-01-09 23:40] VITALS: BP_SYST 64
[2020-01-10] VITALS (10 sets, daily range): BP systolic 57–102
[2020-01-10] MEDS: FOLIC ACID 1 MG, MVI 10 ML in NACL 0.9% 1,000 ML IV SCH ×3 (03:56→16:40)
[2020-01-10] MEDS ORDERED: DEXTROSE 50% JECT 50 ML DISP.SYRIN ONE (07:12)
[2020-01-10] MEDS ORDERED: DEXTROSE 50% JECT 50 ML DISP.SYRIN IVP ONE (07:15)
[2020-01-10 07:20] LABS: INR 1.5 (0.80-1.20); PROTHROMBIN TIME 14.7 SECS (9.5-12.5)
[2020-01-10 07:21] LABS: BASOPHILS # (AUTO) 0.1 K/uL (0.0-0.2); BASOPHILS % (AUTO) 1.3 % (0.0-2.0); EOSINOPHILS # (AUTO) 0.1 K/uL (0.0-0.4); EOSINOPHILS % (AUTO) 1.8 % (0.0-4.0); HEMATOCRIT 32.3 % (36-54); HEMOGLOBIN 11.4 g/dL (14.0-18.0); LYMPHOCYTES # (AUTO) 0.7 K/uL (1.0-5.5); LYMPHOCYTES % (AUTO) 13.9 % (20.5-51.5); MEAN CORPUSCULAR HEMOGLOBIN 40 pg (27-31); MEAN CORPUSCULAR HGB CONC 35 % (32-36); MEAN CORPUSCULAR VOLUME 113 fL (79.0-98.0); MONOCYTES # (AUTO) 0.5 K/uL (0.0-1.0); MONOCYTES % (AUTO) 10.4 % (1.7-9.3); NEUTROPHILS # (AUTO) 3.8 K/uL (1.8-7.7); NEUTROPHILS % (AUTO) 72.6 % (40.0-70.0); PLATELET COUNT (AUTO) 69 K/uL (130-430); RED BLOOD CELL COUNT(AUTO) 2.86 MIL/uL (4.2-6.2); RED CELL DISTRIBUTION WIDTH 14.4 % (9.0-15.0); WHITE BLOOD COUNT (AUTO) 5.2 K/uL (4.8-10.8)
[2020-01-10 07:27] LABS: ALBUMIN 1.3 g/dL (3.4-4.8); CALCIUM 7.3 mg/dL (8.4-11.0); CREATININE 0.66 mg/dL (0.55-1.30); POTASSIUM 3.1 mmol/L (3.5-5.1); TOTAL BILIRUBIN 11.3 mg/dL (0.0-1.0)
--- NOTE | 2020-01-10 07:51 | NUR ---
HANDOFF WITH SHASHANK BOATENG. PARDEEP GREEN
--- NOTE | 2020-01-10 07:56 | NUR ---
0730 critical value of bs ,from lab, 42. patient sweaty, slurred speech. juice given, and d50 , 25cc given ivp 0750, starts eating breakfast, and awake, more alert, " very tired, want to sleep" BS now 213. No coverage at this time. will monitor closely
[2020-01-10] MEDS: FUROSEMIDE 20 MG TABLET PO SCH (09:00)
[2020-01-10] MEDS: lisinopriL 5 MG TABLET PO SCH (09:00)
[2020-01-10] MEDS: CARVEDILOL 12.5 MG TABLET (COREG) PO SCH ×2 (09:00→21:00)
[2020-01-10] MEDS: chlordiazePOXIDE HCL 25 MG CAPSULE PO SCH ×3 (09:36→21:00)
[2020-01-10] MEDS: FAMOTIDINE 20 MG TABLET PO SCH ×2 (09:36→21:00)
[2020-01-10] MEDS: metFORMIN HCL 500 MG TABLET PO SCH ×2 (10:30→18:00)
--- NOTE | 2020-01-10 10:30 | NUR ---
Received patient awake alert confused wondering where he was at. Reoriented patient. IV infusing banana bag at 50ml/hr LFA and NS at 100ml/hr RFA. Patient on room air breathing even and unlabored, no distress noted. Bilateral soft wrist restraints in place and skin checked. Patient incontinent and wet. Changed and bebo care provided. Bed in low, call light in reach, side rails up for safety. Will continue to monitor.
--- NOTE | 2020-01-10 10:35 | NUR ---
0830 wide awake, drank more juice, and ate some breakfast, bp at 80"s still 1000 bp in 70's report given and care taken over by another nurse. glucophage NOT GIVEN secondary to bs lability, and the fact is GLIPIZIDE given by shift stacker, at 0705 this am.
[2020-01-10] MEDS: THIAMINE HCL 100 MG, MAGNESIUM SULFATE 1 GM in NS 100 ML IV SCH (16:35)
--- NOTE | 2020-01-10 16:37 | NUR ---
CONSULTATION PAGED/CALLED Reason for Consultation: [] ALCOHOL LIVER DISEASE Person Who was Notified: [] KANWAL Consulting Physician: [] DR LOGAN OPERATIONS MANAGER FOR DR BLOUNT Crap Game Box Person Specialty: [] GI Ordering Physician: [] DR LIU
[2020-01-10] MEDS: KCL 20 mEq in D5NS 1000 mL 1,000 ML IV SCH (17:23)
--- NOTE | 2020-01-10 18:30 | NUR ---
S/w Dr Myers regarding patient hypotension. Orders to transfer to ICU
--- NOTE | 2020-01-10 18:45 | NUR ---
PATIENT CONDITION DR LIU RE PATIENT LOC AND LATEST BLOOD PRESSURE. MD STATED THAT HE WANTED TO WATCH THE PATIENT CLOSELY DURING THE NIGHT BP DROPS. ASKED MD IF HE WANTED TO ORDER FLUID CHALLENGE FIRST, MD STATED THAT THE PATIENT IS ALREADY ON IV FLUIDS. PATIENT IS CURRENTLY RECEIVING 150 ML IV
--- NOTE | 2020-01-10 18:50 | NUR ---
Opening Notes Patient received from community support associate via bed. Patient transferred to ICU bed 5 and connected to conveyor monitor with sinus bradycardia, HR between 55-58. Patient on room air, no signs of distress noted. Patient with peripheral IV receiving banana bag at 50 ml/hr and D5NS + 20 meq KCL at 100 ml/hr. Patient incontinent. Safety precautions enforced.
--- NOTE | 2020-01-10 18:55 | NUR ---
Report given to Keely for patient transfer to ICU
--- NOTE | 2020-01-10 19:00 | NUR ---
Patient transferred to ICU bed 5 via bed, and received by Keely. Assisted with transfer to ICU bed.
--- NOTE | 2020-01-10 19:31 | NUR ---
Closing Notes Endorsed patient to tumbler machine operator RN using SBAR. No signs of distress noted.
[2020-01-10] MEDS: LACTULOSE 20 GM/30 ML UDC PO SCH (21:00)
[2020-01-10] MEDS: RIFAXIMIN 550 MG TABLET PO SCH (21:00)
[2020-01-11] VITALS (15 sets, daily range): BP systolic 93–130
[2020-01-11] MEDS: KCL 20 mEq in D5NS 1000 mL 1,000 ML IV SCH
[2020-01-11] MEDS ORDERED: ALBUMIN HUMAN 25% 100 ML IV ONE ×2 (00:17)
[2020-01-11] MEDS ORDERED: ALBUMIN HUMAN 25% 50 ML IV SCH (00:50)
[2020-01-11] MEDS ORDERED: ALBUMIN HUMAN 25% 50 ML IV ONE ×3 (01:17→09:15)
[2020-01-11] MEDS ORDERED: NOREPINEPHRINE 4 MG/4 ML VIAL IV ONE ×2 (02:50→12:15)
[2020-01-11 06:06] LABS: HEPATITIS A AB, IgM Negative (Negative); HEPATITIS B CORE AB, IgM Negative (Negative); HEPATITIS B SURFACE AG Negative (Negative)
[2020-01-11] MEDS ORDERED: D5W 1,000 ML IV PRN (06:08)
[2020-01-11] MEDS ORDERED: GLUCOSE 15 GM GEL (in 37.5 GM TUBE) PO PRN (06:15)
[2020-01-11] MEDS ORDERED: DEXTROSE 50% JECT 50 ML DISP.SYRIN IVP PRN ×2 (06:15→17:00)
[2020-01-11] MEDS ORDERED: DEXTROSE 50% JECT 50 ML DISP.SYRIN ONE (06:33)
--- NOTE | 2020-01-11 06:36 | NUR ---
LOW BLOOD SUGAR PTS BLOOD SUGAR WAS 66. 15MINS LATER BLOOD SUGAR TAKEN FOR A SECOND TIME AFTER D50 IVP GIVEN, BLOOD SUGAR NOW 146.
--- NOTE | 2020-01-11 07:30 | NUR ---
AM ASSESSMENT PATIENT ASLEEP WHEN APPROACHED, RESPONSIVE TO VERBAL COMMAND, TEMP AFEBRILE, IVF INFUSING D5NS WITH 20 MEQ KCL AT 100 ML PER HR, PLUS BANANA BAG AT 50 ML PER HR, LEVOPHED DRIP AT 0.1 MCG/KG/MIN, CONTINUE TO MONITOR.
--- NOTE | 2020-01-11 07:30 | NUR ---
DOWNTIME FROM 1999 TO 06 SEE DOWNTIME CHARTING FOR MORE INFORMATION.
--- NOTE | 2020-01-11 08:30 | NUR ---
HYGIENE. AWAKENED PT FOR HIS BREAKFAST, INCONTINENT OF BLADDER, CLEANSED GENITAL AREA WITH SOAPY WARM WATER, RINSED AND PLACED ABSORBENT PAD TO KEEP PT DRY, URINAL PLACED TO HIS REACH, ENCOURAGED TO USE THE BOTTLE TO URINATE INTO IT.
[2020-01-11] MEDS: lisinopriL 5 MG TABLET PO SCH (09:00)
[2020-01-11] MEDS: CARVEDILOL 12.5 MG TABLET (COREG) PO SCH ×2 (09:00→21:18)
--- NOTE | 2020-01-11 09:00 | NUR ---
DIET. SUPERVISED PT AT BREAKFAST, PT WEAK, HAD COUGHS AT EVERY ATTEMPTS, PATIENTLY FED PATIENT, PT WOULD ALSO TAKE SIPS OF WATER AND COUGHS AGAIN. CONSUMED ABOUT 10% OF HIS MEAL.
[2020-01-11 09:07] LABS: BASOPHILS # (AUTO) 0.1 K/uL (0.0-0.2); BASOPHILS % (AUTO) 1.3 % (0.0-2.0); EOSINOPHILS # (AUTO) 0.2 K/uL (0.0-0.4); EOSINOPHILS % (AUTO) 3.7 % (0.0-4.0); HEMATOCRIT 31.3 % (36-54); HEMOGLOBIN 10.9 g/dL (14.0-18.0); LYMPHOCYTES # (AUTO) 0.7 K/uL (1.0-5.5); LYMPHOCYTES % (AUTO) 10.5 % (20.5-51.5); MEAN CORPUSCULAR HEMOGLOBIN 40 pg (27-31); MEAN CORPUSCULAR HGB CONC 35 % (32-36); MEAN CORPUSCULAR VOLUME 115 fL (79.0-98.0); MONOCYTES # (AUTO) 0.8 K/uL (0.0-1.0); MONOCYTES % (AUTO) 12.2 % (1.7-9.3); NEUTROPHILS # (AUTO) 4.7 K/uL (1.8-7.7); NEUTROPHILS % (AUTO) 72.3 % (40.0-70.0); PLATELET COUNT (AUTO) 86 K/uL (130-430); RED BLOOD CELL COUNT(AUTO) 2.72 MIL/uL (4.2-6.2); RED CELL DISTRIBUTION WIDTH 14.4 % (9.0-15.0); WHITE BLOOD COUNT (AUTO) 6.6 K/uL (4.8-10.8)
[2020-01-11] MEDS: RIFAXIMIN 550 MG TABLET PO SCH ×2 (09:15→21:17)
[2020-01-11] MEDS: chlordiazePOXIDE HCL 25 MG CAPSULE PO SCH ×3 (09:16→21:17)
[2020-01-11] MEDS: FAMOTIDINE 20 MG TABLET PO SCH ×2 (09:16→21:17)
[2020-01-11] MEDS: FUROSEMIDE 20 MG TABLET PO SCH (09:16)
[2020-01-11] MEDS: LACTULOSE 20 GM/30 ML UDC PO SCH ×2 (09:16→21:17)
[2020-01-11 09:29] LABS: ALBUMIN 2.1 g/dL (3.4-4.8); CALCIUM 7.9 mg/dL (8.4-11.0); PHOSPHORUS 3.2 mg/dL (2.7-4.5)
[2020-01-11] MEDS: metFORMIN HCL 500 MG TABLET PO SCH (09:59)
--- NOTE | 2020-01-11 10:15 | NUR ---
HYGIENE. PT WOKE UP AND ASKED FOR A BEDPAN, "I WANT TO DO NUMBER 2", LIFTED HIS 2 FINGERS UP. PT ALREADY URINATED ON THE BED. WASHED HIS PERINEAL AREA WITH TOWEL SOAKED IN LUKE WARM WATER THEN BEDPAN PROVIDED AND GAVE AMPLE TIME. PT HAD NOTHING DONE AFTER REMOVING THE BEDPAN.
--- NOTE | 2020-01-11 11:38 | NUR ---
Dietitian Recommendations *Recommend: Mechanical soft CCHO diet w/ Glucerna BID. ONS will provide additional 440 kcal and 20gm protein daily. *Consider swallow eval. Please see Nutritional Assessment for details. MAHESH, RD
[2020-01-11 11:56] LABS: POTASSIUM 3.5 mmol/L (3.5-5.1)
[2020-01-11 11:57] LABS: BILIRUBIN,DIRECT 9.6 mg/dL (0.0-0.3); TOTAL BILIRUBIN 12.8 mg/dL (0.0-1.0)
--- NOTE | 2020-01-11 12:30 | NUR ---
HYGIENE. PT INCONTINENT OF BLADDER, PT ASKED TO BE TAKEN TO THE BATHROOM, PT WEAK, AND HEAVY, EDEMA TO MIDDLE OF HIS BODY AND LEGS, HARDLY ABLE TO TURN HIMSELF IN BED, CLEANSED PERINEAL AREA WITH SOAPY TOWEL, RINSED SKIN, WITH AUDIBLE WHEEZES AFTER CARE, RAISED HIS HEAD OF BED FOR PT'S COMFORT, O2 SAT IN THE 90'S.
--- NOTE | 2020-01-11 13:54 | NUR ---
NURSING. CALLED DR LIU, AND REPORTED THAT PT'S FINGER STICK BLOOD GLUCOSE BEFORE LUNCH TIME 178 MG/DL, HIS BLOOD SUGAR EARLIER TODAY WAS 66 MG/DL. HE ORDERED NOT TO GIVE HIM INSULIN COVERAGE, AND TO CONSULT DR CANDELARIO FOR MANAGING DIABETES.
--- NOTE | 2020-01-11 14:00 | NUR ---
OLIVEIRA CATH: # 16 FR Oliveira catheter inserted with use of sterile technique. Bulb inflated with 10 cc sterile water. Immediate return of 40 cc urine noted. Bedside drainage bag placed below level of bladder. Pt tolerated procedure well.
--- NOTE | 2020-01-11 14:23 | NUR ---
CONSULT ENDO. CONSULTING MD: DR. CANDELARIO SPOKE TO: CODI DIALED: [phone] ORDERED BY: DR. LIU
[2020-01-11] MEDS: THIAMINE HCL 100 MG, MAGNESIUM SULFATE 1 GM in NS 100 ML IV SCH (14:51)
[2020-01-11] MEDS: FOLIC ACID 1 MG, MVI 10 ML in NACL 0.9% 1,000 ML IV SCH (14:54)
--- NOTE | 2020-01-11 17:34 | NUR ---
S.T. SWALLOW EVAL SWALLOW EVAL COMPLETED. PT PRESENTS W/ MOD OROPHARYNGEAL DYSPHAGIA W/ DELAYED BOLUS TRANSFER FOR PUREE AND COUGHING ON THIN LIQUIDS INDICATING RISK FOR ASPIRATION. REC: PUREE DIET. THICKENED LIQUIDS (NECTAR CONSISTENCY). NO STRAW. CONSIDER RE-EVAL WHEN ALERTNESS IMPROVES. NURSE EMMA NOTIFIED.
[2020-01-11] MEDS: INSULIN LISPRO SLIDING SCALE 100 UNITS/ML VIAL (humaLOG) SUBCUT PRN ×2 (17:44→21:37)
--- NOTE | 2020-01-11 19:30 | NUR ---
DR HAWKINSIUM HERE. NO NEW ORDERS GIVEN.
[2020-01-11] MEDS: NOREPINEPHRINE BITARTRATE 4 MG in NS 246 ML IV PRN (19:56)
--- NOTE | 2020-01-11 20:00 | NUR ---
AWAKE. DISORIENTED TO TIME AND PLACE. REORIENTED. ON ROOM AIR. POX 94%. ON LEVOPHED AT 0.1 MCG/KG/MIN. OLIVEIRA CATH PATENT DRAINING CLEAR JONI URINE WITH SEDIMENTS TO GRAVITY. JAMMIE SCD'S IN PLACE. SR.
--- NOTE | 2020-01-11 21:00 | NUR ---
ACCU-CHEK 176, 2 UNITS NOVOLOG INSULIN SQ GIVEN.
[2020-01-11] MEDS: LORazepam 2 MG/ML VIAL IVP PRN (23:36)
--- NOTE | 2020-01-11 23:40 | NUR ---
ATTEMPTING TO GET OUT OF BED. ATIVAN 1 MG IVP GIVEN FOR RESTLESSNESS.
[2020-01-12] VITALS (24 sets, daily range): BP systolic 79–121
--- NOTE | 2020-01-12 02:00 | NUR ---
ASLEEP. NO DISTRESS NOTED.
[2020-01-12] MEDS: NOREPINEPHRINE BITARTRATE 4 MG in NS 246 ML IV PRN ×3 (03:25→18:42)
--- NOTE | 2020-01-12 04:00 | NUR ---
SOUNDLY ASLEEP. REPOSITIONS SELF WELL. VSS.
--- NOTE | 2020-01-12 05:00 | NUR ---
CHG BATH GIVEN. ORAL CARE, KATIE-CARE, SKIN CARE, OLIVEIRA CARE GIVEN. PARTIAL LINEN CHANGE. DOES NOT ASSIST WITH TURNING. TYLER PROC WELL.
--- NOTE | 2020-01-12 06:00 | NUR ---
UO GOOD. SOMNOLENT. REMAINS IN GUARDED CONDITION.
[2020-01-12] MEDS: INSULIN LISPRO SLIDING SCALE 100 UNITS/ML VIAL (humaLOG) SUBCUT PRN ×3 (06:28→18:25)
--- NOTE | 2020-01-12 06:30 | NUR ---
POX HIGH 80'S-LOW 90'S, PLACED ON 2L/MIN/NC.
--- NOTE | 2020-01-12 07:00 | NUR ---
ACCU-CHEK 243, 4 UNITS NOVOLOG INSULIN SQ GIVEN PER SLIDING SCALE COV. DR KEARNEY HERE, UP DATED ON STATUS. NO NEW ORDERS GIVEN.
--- NOTE | 2020-01-12 07:25 | NUR ---
Opening Note Received bedside report from endorsing RN for continuation of care. Received patient resting in bed, no signs or symptoms of acute distress noted. Bed locked in lowest position, bed alarm on, and call light within reach. Fall and safety precautions in place.
--- NOTE | 2020-01-12 07:33 | NUR ---
Dr. Singh at bedside examining patient. New orders received.
[2020-01-12 07:51] LABS: BASOPHILS % (AUTO) 0.9 % (0.0-2.0); EOSINOPHILS # (AUTO) 0.1 K/uL (0.0-0.4); EOSINOPHILS % (AUTO) 1.6 % (0.0-4.0); HEMATOCRIT 31.1 % (36-54); HEMOGLOBIN 10.8 g/dL (14.0-18.0); LYMPHOCYTES # (AUTO) 0.4 K/uL (1.0-5.5); LYMPHOCYTES % (AUTO) 6.6 % (20.5-51.5); MEAN CORPUSCULAR HEMOGLOBIN 40 pg (27-31); MEAN CORPUSCULAR HGB CONC 35 % (32-36); MEAN CORPUSCULAR VOLUME 115 fL (79.0-98.0); MONOCYTES # (AUTO) 0.6 K/uL (0.0-1.0); MONOCYTES % (AUTO) 10.5 % (1.7-9.3); NEUTROPHILS # (AUTO) 4.4 K/uL (1.8-7.7); NEUTROPHILS % (AUTO) 80.4 % (40.0-70.0); PLATELET COUNT (AUTO) 63 K/uL (130-430); RED CELL DISTRIBUTION WIDTH 14.4 % (9.0-15.0); WHITE BLOOD COUNT (AUTO) 5.4 K/uL (4.8-10.8)
[2020-01-12 08:02] LABS: CALCIUM 7.3 mg/dL (8.4-11.0); CREATININE 0.77 mg/dL (0.55-1.30); POTASSIUM 3.9 mmol/L (3.5-5.1)
[2020-01-12] MEDS: CARVEDILOL 12.5 MG TABLET (COREG) PO SCH ×2 (09:00→21:02)
[2020-01-12] MEDS: RIFAXIMIN 550 MG TABLET PO SCH ×3 (09:00→21:02)
[2020-01-12] MEDS: chlordiazePOXIDE HCL 25 MG CAPSULE PO SCH ×4 (09:00→21:02)
[2020-01-12] MEDS: FAMOTIDINE 20 MG TABLET PO SCH ×3 (09:00→21:02)
[2020-01-12] MEDS: LACTULOSE 20 GM/30 ML UDC PO SCH ×2 (09:00→09:38)
[2020-01-12] MEDS: FUROSEMIDE 20 MG TABLET PO SCH ×2 (09:00→09:39)
[2020-01-12] MEDS: lisinopriL 5 MG TABLET PO SCH (09:00)
[2020-01-12] MEDS: KCL 20 mEq in D5NS 1000 mL 1,000 ML IV SCH ×2 (09:44→21:01)
--- NOTE | 2020-01-12 10:14 | NUR ---
Spoke with patient's daughter Cornelia on the phone, updated on patient status and plan of care. All questions answered and education provided.
--- NOTE | 2020-01-12 11:01 | NUR ---
NGT Insertion Attempt Attempted to insert NG tube x 4. Unable to advance NGT to bilateral nostrils. Unable to administer medications due to patient being drowsy and unable to follow commands.
--- NOTE | 2020-01-12 11:49 | NUR ---
Paged Dr. Jack
--- NOTE | 2020-01-12 11:54 | NUR ---
Paged Dr. Singh, spoke with mac Cross.
--- NOTE | 2020-01-12 12:00 | NUR ---
Dr. Hollidayium call back, new orders received for PICC line.
--- NOTE | 2020-01-12 12:04 | NUR ---
Dr. Singh call back, made aware of NGT insertion attempts, states he will be rounding tomorrow morning.
[2020-01-12] MEDS ORDERED: LevALBUTEROL HCL 1.25 MG/0.5 ML *CONC.* VIAL.NEB (XOPENEX CONC.) INH PRN (14:00)
--- NOTE | 2020-01-12 14:00 | NUR ---
RT NOTES Sterile NTS well tolerated, large amount of bloody secretion collected, rn said to take sample to lab and see if able to be used for cultures. Will monitor pt
--- NOTE | 2020-01-12 14:20 | NUR ---
Dr. Jack at bedside examining patient. New orders received.
--- NOTE | 2020-01-12 14:25 | NUR ---
New consult paged to Dr. Rowley, spoke with exchange.
[2020-01-12] MEDS ORDERED: DEXTROSE 50% JECT 50 ML DISP.SYRIN IVP PRN (14:30)
[2020-01-12] MEDS ORDERED: *TPN PER PHARMACY XX PRN (14:30)
--- NOTE | 2020-01-12 14:30 | NUR ---
Spoke with Dr. Donohue on the phone for new consultation.
--- NOTE | 2020-01-12 14:32 | NUR ---
Dr. Hodge at bedside examining patient. New orders received.
--- NOTE | 2020-01-12 14:45 | NUR ---
PICC Line Insertion PICC Line insertion being done at bedside by PICC line RN.
[2020-01-12] MEDS: LevALBUTEROL HCL 1.25 MG/0.5 ML *CONC.* VIAL.NEB (XOPENEX CONC.) INH SCH ×2 (14:50→19:50)
[2020-01-12] MEDS: THIAMINE HCL 100 MG, MAGNESIUM SULFATE 1 GM in NS 100 ML IV SCH (15:09)
[2020-01-12] MEDS: FOLIC ACID 1 MG, MVI 10 ML in NACL 0.9% 1,000 ML IV SCH (15:09)
[2020-01-12] MEDS: INSULIN GLARGINE 100 UNITS/ML 10 ML VIAL SUBCUT SCH (15:10)
--- NOTE | 2020-01-12 16:27 | NUR ---
Dr. Donohue at bedside examining patient. New orders received.
[2020-01-12] MEDS ORDERED: OCTREOTIDE ACETATE 1,250 MCG in NS 243.75 ML IV SCH (16:30)
[2020-01-12] MEDS: ALBUMIN HUMAN 25% 50 ML IV SCH ×2 (16:30→22:18)
--- NOTE | 2020-01-12 17:10 | NUR ---
NGT Insertion by Dr. Francisco Singh at bedside for NGT insertion. Awaiting radiologist confirmation of placement.
--- NOTE | 2020-01-12 17:40 | NUR ---
Updated pt's family ( and son) regarding patient status.
[2020-01-12] MEDS ORDERED: LACTULOSE 20 GM/30 ML UDC RC SCH (18:00)
--- NOTE | 2020-01-12 18:00 | NUR ---
Dr. Rowley return call, new orders received.
--- NOTE | 2020-01-12 18:04 | NUR ---
Paged Dr. Banerjee for orders, spoke with exchange.
[2020-01-12] MEDS ORDERED: LACTULOSE 20 GM/30 ML UDC NG ONE (18:15)
--- NOTE | 2020-01-12 18:17 | NUR ---
Dr. Banerjee returned call. New orders made
[2020-01-12] MEDS: PIPERACILLIN/TAZO 3.375/DEX-IS 50 ML IV SCH ×2 (18:24→23:28)
[2020-01-12] MEDS: LORazepam 2 MG/ML VIAL IVP PRN (18:44)
--- NOTE | 2020-01-12 19:35 | NUR ---
Family Update Spoke with patient's family in hospital lobby. Updated on patient status and plan of care. All questions answered and education provided. Placed note in patient's chart to have MD call family.
--- NOTE | 2020-01-12 19:44 | NUR ---
Closing Note Endorsed bedside report to oncoming RN using SBAR approach for continuation of care.
--- NOTE | 2020-01-12 19:45 | NUR ---
OPENING NOTE: Received SBAR report from off coming RN for continuity of care. Pt in bed, moaning every now and then and making spontaneous arm movements. Pt on 5 L O2 via NC with humidity. R) upper arm PICC line in place with D5NS with 20 mEq Kchl infusing @ 100 cc/hr, Banana bag infusing @ 50 cc/hr, albumin infusing @ 50 cc/hr, Levophed gtt @ 0.112 mcg/kg/min. Mercado catheter draining to gravity. Bilateral soft wrist restrains in place. Will continue to monitor and assess.
--- NOTE | 2020-01-12 21:00 | NUR ---
Pt in bed, opens eyes to verbal and tactile stimuli. Pt unable to follow commands. Pt continues to be confused and appears to be restless. Pt on 5 L O2 via NC with humidity, O2 saturations maintained above 90%. Provided PO care and PO suctioning, obtained a moderate amount of thick dark brown secretions. Bilateral soft restraints in place assessed for need and circulation. Pt tolerated assessment and cares. NGT in place, administered medications through gravity. R) upper arm PICC in place, Levophed gtt infusing @ 0.118 mcg/kg/min, D5NS with 20 mEq Kchl infusing @ 100 ml/hr, and banana bag @ 50 cc/hr. Mercado catheter continues to drain to gravity, ricci urine noted in drainage bag. Provided repositioning and turning. Will continue to monitor and assess.
[2020-01-12] MEDS: metroNIDAZOLE 500 mg/NS 100 ML IV SCH (21:03)
[2020-01-12 23:23] LABS: BILIRUBIN,URINE 3+ (NEGATIVE); BLOOD, URINE 3+ (NEGATIVE); CLARITY/URINE CLEAR (CLEAR); COLOR,URINE YELLOW (YELLOW); GLUCOSE,URINE TRACE (NEGATIVE); KETONES,URINE TRACE (NEGATIVE); LEUKOCYTE ESTERASE ,URINE TRACE (NEGATIVE); NITRITE, URINE NEGATIVE (NEGATIVE); PH,URINE 6.5 (5.0-8.0); PROTEIN URINE TRACE (NEGATIVE)
[2020-01-12 23:25] LABS: UROBILINOGEN,URINE >=8 (0.2-1.0)
[2020-01-12 23:30] LABS: RBC,URINE 50-80 /HPF (0-3)
[2020-01-12 23:31] LABS: BACTERIA,URINE FEW /HPF (None Seen)
--- NOTE | 2020-01-12 23:45 | NUR ---
FAMILY FACETIME: Provided family with update, questions answered accordingly. Family face timed with pt.
[2020-01-13] VITALS (23 sets, daily range): BP systolic 89–140
[2020-01-13] MEDS: NOREPINEPHRINE BITARTRATE 4 MG in NS 246 ML IV PRN ×2 (01:20→15:10)
--- NOTE | 2020-01-13 02:30 | NUR ---
WOUND CARE/CHG/BM: Provided wound care to 3 skin tears to pt's forearm, pt tolerated well. CHG bath given, pt tolerated well. Full linen change complete. Pt had 1 large BM, provided bebo and Mercado care, pt tolerated well.
[2020-01-13] MEDS: ALBUMIN HUMAN 25% 50 ML IV SCH ×4 (04:09→21:53)
--- NOTE | 2020-01-13 04:30 | NUR ---
BM: Pt had 1 large BM, provided bebo and Mercado care, pt tolerated well.
[2020-01-13 05:56] LABS: BASOPHILS # (AUTO) 0.1 K/uL (0.0-0.2); BASOPHILS % (AUTO) 1.4 % (0.0-2.0); EOSINOPHILS # (AUTO) 0.2 K/uL (0.0-0.4); EOSINOPHILS % (AUTO) 2.5 % (0.0-4.0); HEMOGLOBIN 10.9 g/dL (14.0-18.0); LYMPHOCYTES # (AUTO) 0.7 K/uL (1.0-5.5); LYMPHOCYTES % (AUTO) 9.2 % (20.5-51.5); MEAN CORPUSCULAR HEMOGLOBIN 40 pg (27-31); MEAN CORPUSCULAR HGB CONC 34 % (32-36); MEAN CORPUSCULAR VOLUME 117 fL (79.0-98.0); MONOCYTES # (AUTO) 0.9 K/uL (0.0-1.0); MONOCYTES % (AUTO) 12.7 % (1.7-9.3); NEUTROPHILS # (AUTO) 5.3 K/uL (1.8-7.7); NEUTROPHILS % (AUTO) 74.2 % (40.0-70.0); PLATELET COUNT (AUTO) 67 K/uL (130-430); RED BLOOD CELL COUNT(AUTO) 2.74 MIL/uL (4.2-6.2); RED CELL DISTRIBUTION WIDTH 14.5 % (9.0-15.0); WHITE BLOOD COUNT (AUTO) 7.2 K/uL (4.8-10.8)
[2020-01-13 06:12] LABS: INR 1.5 (0.80-1.20); PROTHROMBIN TIME 15.5 SECS (9.5-12.5)
[2020-01-13] MEDS: metroNIDAZOLE 500 mg/NS 100 ML IV SCH ×3 (06:31→21:50)
[2020-01-13] MEDS: PIPERACILLIN/TAZO 3.375/DEX-IS 50 ML IV SCH ×3 (06:37→17:26)
[2020-01-13] MEDS: KCL 20 mEq in D5NS 1000 mL 1,000 ML IV SCH (07:00)
[2020-01-13] MEDS: LevALBUTEROL HCL 1.25 MG/0.5 ML *CONC.* VIAL.NEB (XOPENEX CONC.) INH SCH ×3 (07:14→23:34)
--- NOTE | 2020-01-13 07:20 | NUR ---
CLOSING NOTE: Endorsed SBAR report to oncoming RN for continuity of care. Pt resting in bed with occasional moaning. Pt opens eyes to verbal and tactile stimuli at times and can follow simple commands at times. Pt remains on 5L of O2 via NC with humidity, O2 saturations maintained above 90%. NGT in place. R) upper arm PICC in place with Levophed infusing @ 0.154 mcg/kg/min, D5NS with 20 mEq Kchl infusing @ 100 cc/hr, Banana bag infusing @ 50 cc/hr. Mercado catheter draining to gravity, 400 cc output.
[2020-01-13 07:22] LABS: ALBUMIN 2.1 g/dL (3.4-4.8); BILIRUBIN,DIRECT 10.9 mg/dL (0.0-0.3); TOTAL BILIRUBIN 14.7 mg/dL (0.0-1.0)
--- NOTE | 2020-01-13 07:25 | NUR ---
Opening Note Patient report received via SBAR from endorsing RN
[2020-01-13] MEDS ORDERED: LACTULOSE 20 GM/30 ML UDC NG ONE (07:45)
--- NOTE | 2020-01-13 07:55 | NUR ---
ROUND Dr. Singh in to see patient, new orders entered
[2020-01-13 08:08] LABS: CALCIUM 7.6 mg/dL (8.4-11.0); CREATININE 0.89 mg/dL (0.55-1.30); POTASSIUM 3.8 mmol/L (3.5-5.1)
[2020-01-13] MEDS: FUROSEMIDE 20 MG TABLET PO SCH (08:48)
[2020-01-13] MEDS: lisinopriL 5 MG TABLET PO SCH (08:48)
[2020-01-13] MEDS: CARVEDILOL 12.5 MG TABLET (COREG) PO SCH (08:48)
[2020-01-13] MEDS: chlordiazePOXIDE HCL 25 MG CAPSULE PO SCH (08:49)
[2020-01-13] MEDS: FAMOTIDINE 20 MG TABLET PO SCH (08:50)
[2020-01-13] MEDS: RIFAXIMIN 550 MG TABLET PO SCH (08:50)
[2020-01-13] MEDS ORDERED: LACTULOSE 20 GM/30 ML UDC NG SCH ×2 (09:00)
[2020-01-13] MEDS: INSULIN GLARGINE 100 UNITS/ML 10 ML VIAL SUBCUT SCH (09:00)
--- NOTE | 2020-01-13 09:00 | NUR ---
MD CALL Dr. Dvaidson updated about patient's condition, no new orders
[2020-01-13] MEDS ORDERED: COMMUNICATION ORDER XX ONE (10:15)
[2020-01-13] MEDS ORDERED: CARVEDILOL 12.5 MG TABLET (COREG) NG SCH (10:24)
[2020-01-13] MEDS ORDERED: chlordiazePOXIDE HCL 25 MG CAPSULE NG SCH (10:24)
[2020-01-13] MEDS ORDERED: FUROSEMIDE 20 MG TABLET NG SCH (10:24)
[2020-01-13] MEDS ORDERED: HYDROcodone/ACETAMIN 10-325 MG TAB NG PRN (10:28)
--- NOTE | 2020-01-13 11:00 | NUR ---
Nursing Note Patient repositioned in bed and provided oral care, patient tolerated well
--- NOTE | 2020-01-13 13:00 | NUR ---
ROUND Dr. Donohue in to see patient, new orders entered
[2020-01-13] MEDS: LACTULOSE 20 GM/30 ML UDC NG SCH ×2 (13:04→17:25)
[2020-01-13] MEDS: INSULIN LISPRO SLIDING SCALE 100 UNITS/ML VIAL (humaLOG) SUBCUT PRN ×2 (13:05→17:33)
--- NOTE | 2020-01-13 14:00 | NUR ---
ROUND Dr. Alvarenga in to see patient, no new orders
[2020-01-13] MEDS ORDERED: FUROSEMIDE 40 MG/4 ML VIAL IVP ONE (14:45)
--- NOTE | 2020-01-13 15:07 | NUR ---
Nutrition F/U Admitting Diagnosis Hyponatremjia, Lactic acidosis Medical History Comment: Pt presents w/: Acute Alcoholic Intoxication, HTN, CAD, DM, Alcoholic Liver Disease, septic shock, hepatitis, aspiration PNA per MD notes. PSH: CABG Subjective Information Pt is in ICU bed [address] visit has been deferred d/t lack of PPE. Per EMR, pt is lethargic and an NGT was inserted to the right nare last night to provide medication and nutrition. He is on 5L NC for oxygen support with Jevity 1.5 at 10ml/hr running, 42ml enfused so far upon RD visit. RD s/w pt's RN who reports TF just started and will be advanced 10ml every hour per MD order, until goal. His tube feeding goal rate will provide 1800 calories, 77g of protein, and 1312ml of free H20 daily, which meets 92% and 99% of lower end of calorie and protein needs, respectively. Pt was taken off his oral medication for diabetes d/t his liver cirrhosis and is now on sliding scale coverage. Abd is noted as firm, bowel sounds hypoactive, skin color jaundiced. 1 large BM today per RN note. Current Diet Order/Nutrition Support Jevity 1.5 at 10ml/hr, increase by 10ml/hr to reach goal of 50ml/hr, Free H20 flush 100 every 6 hours Pertinent Medications Lactulose, Thiamine, Folic acid, Lasix, Insulin, Pepcid, Zosyn, Flagyl Pertinent Labs 01/12 Na 138 WNL, K 3.8 WNL, BG 255 H, POC BG 249 H, BUN 16WNL, CRE 0.89WNL Skin Integrity Comment: Asher scale: 15. No pressure injury, +dry scab to Posterior Right Head. 1+ pitting edema to Bilateral foot and trunk per EMR. Estimated Energy Expenditure (kcals/day) 4114-6222 Kcal/day (25-30 kcal/kg IBW for acute state) NEW Estimated Protein Required (g/day) 78-117gm/day (1-1.5gm/kg IBW for liver disease, hepatitis) Estimated Fluid Required (l/day) 2.3 L/day (30ml/kg IBW for maintenance) Problem/Etiology/Signs/Symptoms Altered nutrition-related labs r/t endocrine dysfunction AEB elevated BG and POC BG lab values and Hx of DM. (*ongoing) Moderate malnutrition r/t chronic illness AEB 23# weight loss in 3 months and poor PO intake x2 months [employer]. (*ongoing) Inadequate oral intake r/t lethargy AEB NGT inserted to provide nutrition and medication (*new) Expected Outcomes/Goals Monitor appetite and PO intake w/ goal of pt meeting more than 75% of estimated nutritional needs, labs trending WNL, normal GI function, skin integrity/wt maintenance. Dietitian Recommendations *Continue to advance 10ml/hr every hour as tolerated until Jevity 1.5 at 50ml/hr (goal) with 100ml free H20 flush every 6 hours. *This will provide 1800 calories, 77g of protein, and 1312ml of free H20 daily *Meets 92% and 99% of lower end of calorie and protein needs, respectively. Follow Up High Risk: F/U in 2-3days
--- NOTE | 2020-01-13 15:17 | NUR ---
Dietitian Recommendations *Continue to advance 10ml/hr every hour as tolerated until Jevity 1.5 at 50ml/hr (goal) with 100ml FWF Q6h *This will provide 1800 calories, 77g of protein, and 1312ml of free H20 daily *Meets 92% and 99% of lower end of calorie and protein needs, respectively. Please see Nutrition F/U for further details. LT, RD
--- NOTE | 2020-01-13 18:00 | NUR ---
Nursing Note Patient had a loose BM, patient cleaned, lines changed, gown changed, patient repositioned, Patient tolerated well
[2020-01-13 18:51] LABS: URINE SODIUM, RANDOM 49 mmol/L (40-220)
--- NOTE | 2020-01-13 19:13 | NUR ---
Closing Note Patient report given to nightshift RN via SBAR
--- NOTE | 2020-01-13 19:15 | NUR ---
OPENING NOTE: Received SBAR report from off coming RN for continuity of care. Pt resting in bed, no s/s of acute distress noted. Pt on 5L O2 via NC. NGT in place. Mercado catheter draining to gravity. R) upper arm PICC in place, Levophed gtt infusing @ 0.06 mcg/kg/min and NS TKO @ 3ml/hr. Will continue to monitor and assess.
[2020-01-13] MEDS ORDERED: FAMOTIDINE PF 20 MG/2 ML VIAL IVP SCH (21:00)
[2020-01-13] MEDS: FUROSEMIDE 40 MG/4 ML VIAL IVP SCH (21:50)
[2020-01-13] MEDS: RIFAXIMIN 550 MG TABLET NG SCH (21:50)
--- NOTE | 2020-01-13 22:00 | NUR ---
Pt in bed, lethargic. Pt opens eyes to painful stimuli and remains confused. Pt on 5 L via NC with humidity, O2 saturations maintained above 90%. Provided PO care and oropharynx suctioning, moderate yellow, thick output suctioned; pt tolerated well but would move vigorously when suctioning. Bilateral soft restraints in place, assessed for need, circulation and safety; no issues noted. Levophed gtt continues infusing @ 0.06 mcg/kg/min. NGT in place, tube feeding infusing @ 10 ml/hr. Mercado catheter draining to gravity, ricci urine draining. SCDs in place. Pt had a large loose BM, provided bebo and Mercado care, pt tolerated well. Repositioned and turned pt for comfort. Will continue to monitor and assess.
[2020-01-14] VITALS (24 sets, daily range): BP systolic 86–113
--- NOTE | 2020-01-14 | NUR ---
BM: Pt had 1 loose BM. Radha and Mercado care provided, pt tolerated well. Provided turning and repositioning.
[2020-01-14] MEDS: PIPERACILLIN/TAZO 3.375/DEX-IS 50 ML IV SCH ×3 (00:07→11:55)
[2020-01-14] MEDS: LACTULOSE 20 GM/30 ML UDC NG SCH ×4 (00:07→22:31)
[2020-01-14] MEDS: INSULIN LISPRO SLIDING SCALE 100 UNITS/ML VIAL (humaLOG) SUBCUT PRN ×3 (00:33→17:30)
--- NOTE | 2020-01-14 04:10 | NUR ---
BM: Pt had 1 loose BM. Radha and Mercado care provided, pt tolerated well. Provided turning and repositioning.
[2020-01-14] MEDS: NOREPINEPHRINE BITARTRATE 4 MG in NS 246 ML IV PRN ×3 (04:13→17:16)
[2020-01-14] MEDS: ALBUMIN HUMAN 25% 50 ML IV SCH ×2 (04:18→10:24)
[2020-01-14 05:25] LABS: BASOPHILS # (AUTO) 0.1 K/uL (0.0-0.2); BASOPHILS % (AUTO) 1.8 % (0.0-2.0); EOSINOPHILS # (AUTO) 0.1 K/uL (0.0-0.4); EOSINOPHILS % (AUTO) 2.8 % (0.0-4.0); HEMOGLOBIN 10.9 g/dL (14.0-18.0); LYMPHOCYTES # (AUTO) 0.3 K/uL (1.0-5.5); LYMPHOCYTES % (AUTO) 6.8 % (20.5-51.5); MEAN CORPUSCULAR HEMOGLOBIN 40 pg (27-31); MEAN CORPUSCULAR HGB CONC 34 % (32-36); MEAN CORPUSCULAR VOLUME 117 fL (79.0-98.0); MONOCYTES # (AUTO) 0.7 K/uL (0.0-1.0); NEUTROPHILS # (AUTO) 3.1 K/uL (1.8-7.7); NEUTROPHILS % (AUTO) 72.6 % (40.0-70.0); PLATELET COUNT (AUTO) 57 K/uL (130-430); RED BLOOD CELL COUNT(AUTO) 2.72 MIL/uL (4.2-6.2); RED CELL DISTRIBUTION WIDTH 14.5 % (9.0-15.0); WHITE BLOOD COUNT (AUTO) 4.3 K/uL (4.8-10.8)
[2020-01-14 05:41] LABS: ALBUMIN 2.4 g/dL (3.4-4.8); BILIRUBIN,DIRECT 10.6 mg/dL (0.0-0.3); CALCIUM 7.6 mg/dL (8.4-11.0); CREATININE 0.92 mg/dL (0.55-1.30); POTASSIUM 3.5 mmol/L (3.5-5.1); TOTAL BILIRUBIN 13.7 mg/dL (0.0-1.0)
--- NOTE | 2020-01-14 06:10 | NUR ---
CHG/BM: CHG bath provided, pt tolerated well. Full linen change done. Pt had 1 loose BM. Radha and Mercado care provided, pt tolerated well. Provided turning and repositioning.
--- NOTE | 2020-01-14 07:15 | NUR ---
Opening Note Patient report received via SBAR from endorsing RN
[2020-01-14] MEDS: LevALBUTEROL HCL 1.25 MG/0.5 ML *CONC.* VIAL.NEB (XOPENEX CONC.) INH SCH ×3 (07:20→23:06)
--- NOTE | 2020-01-14 07:35 | NUR ---
CLOSING NOTE: Endorsed SBAR report to oncoming RN for continuity of care.
[2020-01-14] MEDS: lisinopriL 5 MG TABLET NG SCH (07:58)
[2020-01-14] MEDS: RIFAXIMIN 550 MG TABLET NG SCH ×2 (08:01→22:30)
[2020-01-14] MEDS: FUROSEMIDE 40 MG/4 ML VIAL IVP SCH ×2 (08:01→22:30)
[2020-01-14] MEDS: PANTOPRAZOLE SODIUM 40 MG/VIAL (PROTONIX) IVP SCH (08:01)
[2020-01-14] MEDS: INSULIN GLARGINE 100 UNITS/ML 10 ML VIAL SUBCUT SCH (08:02)
[2020-01-14] MEDS: metroNIDAZOLE 500 mg/NS 100 ML IV SCH ×2 (08:03→21:00)
--- NOTE | 2020-01-14 08:30 | NUR ---
ROUND Dr. Donohue in to see patient, new entered orders
--- NOTE | 2020-01-14 08:30 | NUR ---
HIGH ALERT NOTE: Dr. Donohue at bedside to verify order for K-Ashu
[2020-01-14] MEDS ORDERED: KCL 40 mEq in 100 mL (PREMIX) 100 ML IV ONE (09:00)
--- NOTE | 2020-01-14 11:00 | NUR ---
Nursing Note Patient had loose BM, patient cleaned, linens changed, patient repositioned. Patient tolerate well
--- NOTE | 2020-01-14 12:30 | NUR ---
MD ROUND Dr. Hodge in to see patient, physician made aware of NPO prior to procedure. No new orders
--- NOTE | 2020-01-14 12:45 | NUR ---
ROUND Dr. Hodge in to see patient, no new orders
--- NOTE | 2020-01-14 14:20 | NUR ---
Nursing Note monogram technician at bedside to perform abdominal US as prescribed
--- NOTE | 2020-01-14 16:30 | NUR ---
Nursing Note Patient had loose BM, patient cleaned, linen changed, patient repositioned.
--- NOTE | 2020-01-14 17:20 | NUR ---
ROUND Dr. Dvaidson in to see patient, physician entered orders
--- NOTE | 2020-01-14 18:10 | NUR ---
Nursing Note Patient had loose BM, patient cleaned, linens changed, patient was repositioned.
--- NOTE | 2020-01-14 19:22 | NUR ---
Closing Note Patient report given via SBAR to nightshift RN
[2020-01-14] MEDS: CEFEPIME 0.5 GM in D5W 50 ML IV SCH (21:00)
[2020-01-15] VITALS (24 sets, daily range): BP systolic 101–133
[2020-01-15] MEDS: INSULIN LISPRO SLIDING SCALE 100 UNITS/ML VIAL (humaLOG) SUBCUT PRN ×4 (00:30→17:24)
[2020-01-15] MEDS: LACTULOSE 20 GM/30 ML UDC NG SCH ×3 (05:22→21:31)
--- NOTE | 2020-01-15 07:15 | NUR ---
Opening Note Patient report received via SBAR from endorsing RN
[2020-01-15] MEDS: LevALBUTEROL HCL 1.25 MG/0.5 ML *CONC.* VIAL.NEB (XOPENEX CONC.) INH SCH ×3 (07:22→23:49)
[2020-01-15] MEDS: CEFEPIME 0.5 GM in D5W 50 ML IV SCH ×2 (07:50→21:31)
[2020-01-15] MEDS: FUROSEMIDE 40 MG/4 ML VIAL IVP SCH ×3 (08:05→17:24)
[2020-01-15] MEDS: RIFAXIMIN 550 MG TABLET NG SCH ×2 (08:05→21:31)
[2020-01-15] MEDS: PANTOPRAZOLE SODIUM 40 MG/VIAL (PROTONIX) IVP SCH (08:05)
[2020-01-15] MEDS: NOREPINEPHRINE BITARTRATE 4 MG in NS 246 ML IV PRN (08:07)
[2020-01-15] MEDS: INSULIN GLARGINE 100 UNITS/ML 10 ML VIAL SUBCUT SCH (08:08)
[2020-01-15] MEDS: lisinopriL 5 MG TABLET NG SCH (08:08)
[2020-01-15] MEDS: metroNIDAZOLE 500 mg/NS 100 ML IV SCH ×2 (08:08→21:31)
--- NOTE | 2020-01-15 09:05 | NUR ---
MD Round Dr. Donohue in to see patient, physician spoke with family regarding patient's prognosis and possible code status change. Patient to be NPO for now.
[2020-01-15 09:22] LABS: ALBUMIN 2.3 g/dL (3.4-4.8); BASOPHILS # (AUTO) 0.1 K/uL (0.0-0.2); BASOPHILS % (AUTO) 1.2 % (0.0-2.0); BILIRUBIN,DIRECT 10.4 mg/dL (0.0-0.3); CALCIUM 8.2 mg/dL (8.4-11.0); EOSINOPHILS % (AUTO) 0.8 % (0.0-4.0); HEMATOCRIT 35.9 % (36-54); HEMOGLOBIN 12.3 g/dL (14.0-18.0); LYMPHOCYTES # (AUTO) 0.5 K/uL (1.0-5.5); LYMPHOCYTES % (AUTO) 9.2 % (20.5-51.5); MEAN CORPUSCULAR HEMOGLOBIN 40 pg (27-31); MEAN CORPUSCULAR HGB CONC 34 % (32-36); MEAN CORPUSCULAR VOLUME 117 fL (79.0-98.0); MONOCYTES # (AUTO) 0.7 K/uL (0.0-1.0); NEUTROPHILS # (AUTO) 4.1 K/uL (1.8-7.7); NEUTROPHILS % (AUTO) 75.8 % (40.0-70.0); PLATELET COUNT (AUTO) 64 K/uL (130-430); POTASSIUM 3.4 mmol/L (3.5-5.1); RED BLOOD CELL COUNT(AUTO) 3.08 MIL/uL (4.2-6.2); RED CELL DISTRIBUTION WIDTH 14.5 % (9.0-15.0); WHITE BLOOD COUNT (AUTO) 5.4 K/uL (4.8-10.8)
[2020-01-15 09:46] LABS: CREATININE 0.98 mg/dL (0.55-1.30); TOTAL BILIRUBIN 13.2 mg/dL (0.0-1.0)
--- NOTE | 2020-01-15 11:10 | NUR ---
Nursing Note Patient's family in to see patient, Dr. Donohue discussed patient's prognosis with family members. Family indicated they want patient to be DNR with comfort measures only. Dr. Jack paged for orders
[2020-01-15] MEDS ORDERED: KCL 40 mEq in 100 mL (PREMIX) 100 ML IV ONE (11:30)
--- NOTE | 2020-01-15 12:00 | NUR ---
MD CALL Dr. Jack informed about family's decision to change code status, physician will be in to sign form later today
--- NOTE | 2020-01-15 15:00 | NUR ---
Nursing Note Patient had BM, patient cleaned, linens changed, patient repositioned.
--- NOTE | 2020-01-15 16:05 | NUR ---
ROUND Dr. Singh in to see patient, new orders entered
--- NOTE | 2020-01-15 17:30 | NUR ---
Nursing Note Patient had BM, patient cleaned and repositioned
--- NOTE | 2020-01-15 19:15 | NUR ---
Closing Note Patient report given via SBAR to nightshift RN
--- NOTE | 2020-01-15 19:30 | NUR ---
Opening note: Report received from day RN. Assuming care now.
--- NOTE | 2020-01-15 19:31 | NUR ---
Dr Jack at bedside. Signed DNR status form. Informed by undersigned of family's wishes for comfort care per day RN report. Dr stated "yes, chemical only". When asked about pain medication orders and orders to discontinue any other cares, doctor stated "he is not in any pain, we do chemical". No new orders.
[2020-01-16] VITALS (24 sets, daily range): BP systolic 102–126
[2020-01-16] MEDS: INSULIN LISPRO SLIDING SCALE 100 UNITS/ML VIAL (humaLOG) SUBCUT PRN ×4 (00:33→19:54)
[2020-01-16] MEDS: FUROSEMIDE 40 MG/4 ML VIAL IVP SCH ×4 (01:09→19:53)
[2020-01-16 05:43] LABS: BASOPHILS % (AUTO) 0.5 % (0.0-2.0); EOSINOPHILS % (AUTO) 0.3 % (0.0-4.0); HEMATOCRIT 35.1 % (36-54); LYMPHOCYTES # (AUTO) 0.6 K/uL (1.0-5.5); LYMPHOCYTES % (AUTO) 8.5 % (20.5-51.5); MEAN CORPUSCULAR HEMOGLOBIN 40 pg (27-31); MEAN CORPUSCULAR HGB CONC 34 % (32-36); MEAN CORPUSCULAR VOLUME 116 fL (79.0-98.0); MONOCYTES # (AUTO) 0.7 K/uL (0.0-1.0); MONOCYTES % (AUTO) 9.8 % (1.7-9.3); NEUTROPHILS # (AUTO) 5.7 K/uL (1.8-7.7); NEUTROPHILS % (AUTO) 80.9 % (40.0-70.0); PLATELET COUNT (AUTO) 61 K/uL (130-430); RED BLOOD CELL COUNT(AUTO) 3.02 MIL/uL (4.2-6.2); RED CELL DISTRIBUTION WIDTH 14.2 % (9.0-15.0); WHITE BLOOD COUNT (AUTO) 7.1 K/uL (4.8-10.8)
[2020-01-16 05:52] LABS: ALBUMIN 1.9 g/dL (3.4-4.8); BILIRUBIN,DIRECT 8.4 mg/dL (0.0-0.3); CALCIUM 8.3 mg/dL (8.4-11.0); CREATININE 0.93 mg/dL (0.55-1.30); POTASSIUM 3.4 mmol/L (3.5-5.1); TOTAL BILIRUBIN 10.9 mg/dL (0.0-1.0)
--- NOTE | 2020-01-16 07:10 | NUR ---
Report received from SHASHANK Miller for continuation of care.
[2020-01-16] MEDS: CEFEPIME 0.5 GM in D5W 50 ML IV SCH ×2 (08:00→21:00)
[2020-01-16] MEDS: PANTOPRAZOLE SODIUM 40 MG/VIAL (PROTONIX) IVP SCH (08:00)
[2020-01-16] MEDS: LACTULOSE 20 GM/30 ML UDC NG SCH ×2 (08:01→23:03)
[2020-01-16] MEDS: lisinopriL 5 MG TABLET NG SCH (08:04)
[2020-01-16] MEDS: RIFAXIMIN 550 MG TABLET NG SCH ×2 (08:04→23:03)
[2020-01-16] MEDS: INSULIN GLARGINE 100 UNITS/ML 10 ML VIAL SUBCUT SCH (08:05)
[2020-01-16] MEDS: LevALBUTEROL HCL 1.25 MG/0.5 ML *CONC.* VIAL.NEB (XOPENEX CONC.) INH SCH ×3 (08:25→22:52)
[2020-01-16] MEDS: metroNIDAZOLE 500 mg/NS 100 ML IV SCH ×2 (08:32→21:00)
--- NOTE | 2020-01-16 11:48 | NUR ---
Nutrition F/U Admitting Diagnosis Hyponatremjia, Lactic acidosis Medical History Comment: Pt presents w/: Acute Alcoholic Intoxication, HTN, CAD, DM, Alcoholic Liver Disease, septic shock, hepatitis, aspiration PNA per MD notes. PSH: CABG Subjective Information Pt is in ICU bed [address] visit has been deferred d/t lack of PPE. Spoke w/ primary RN via telephone who reports that pt is currently receiving Glucerna 1.2 at 30 ml/hr via NGT. RN reports no major skin breakdown and also states that pt has been having loose stools and is continuing lactulose. Per EMR, pt is now considered DNR status and comfort care. His tube feeding at current rate provides 864 calories, 43 g of protein, and 580 ml of free H20 daily, which meets 44% and 55% of lower end of calorie and protein needs, respectively. Pt is not receiving adequate nutrition support at this time. Abd is noted as firm, bowel sounds hypoactive, skin color jaundiced. Last BM yesterday 01/14 per RN note. Current Diet Order/Nutrition Support Glucerna 1.2 increase by 10ml/hr to reach goal of 30ml/hr, Free H20 flush 100 every 6 hours Pertinent Medications Lactulose, Thiamine, Folic acid, Lasix, Insulin, Pepcid, Zosyn, Flagyl Pertinent Labs 01/14 K 3.4 L, BG 198 H, POC BG 209 H, BUN 23 H Skin Integrity Comment: Asher scale: 12. No pressure injury per primary RN, +dry scab to Posterior Right Head. 1+ pitting edema to Bilateral foot and trunk per EMR. Estimated Energy Expenditure (kcals/day) 0470-5576 Kcal/day (25-30 kcal/kg IBW for acute state) NEW Estimated Protein Required (g/day) 78-117gm/day (1-1.5gm/kg IBW for liver disease, hepatitis) Estimated Fluid Required (l/day) 2.3 L/day (30ml/kg IBW for maintenance) Problem/Etiology/Signs/Symptoms Altered nutrition-related labs r/t endocrine dysfunction AEB elevated BG and POC BG lab values and Hx of DM. (*ongoing) Moderate malnutrition r/t chronic illness AEB 23# weight loss in 3 months and poor PO intake x2 months [employer]. (*ongoing) Inadequate oral intake r/t lethargy AEB NGT inserted to provide nutrition and medication (*ongoing) Expected Outcomes/Goals Monitor appetite and PO intake w/ goal of pt meeting more than 75% of estimated nutritional needs, labs trending WNL, normal GI function, skin integrity/wt maintenance. Dietitian Recommendations *Continue to advance 10ml/hr every hour as tolerated until Glucerna 1.2 reaches 70ml/hr (goal) with 100ml free H20 flush Q6H *This will provide 2016 calories, 101 g of protein, and 1352 ml of free H20 daily *Meets 86% of higher end calorie and protein needs. Follow Up High Risk: F/U in 2-3days
--- NOTE | 2020-01-16 12:08 | NUR ---
Dietitian Recommendations *Continue to advance 10ml/hr every hour as tolerated until Glucerna 1.2 reaches 70ml/hr (goal) with 100ml free H20 flush Q6H *This will provide 2016 calories, 101 g of protein, and 1352 ml of free H20 daily *Meets 86% of higher end calorie and protein needs. Please see Nutrition F/U for details. SS, RD
--- NOTE | 2020-01-16 15:15 | NUR ---
Patient is desaturating on HFNC, Dr. Donohue notified. He stated to try NRB mask and then report back.
--- NOTE | 2020-01-16 15:27 | NUR ---
Spoke with patient's daughter, Cornelia, regarding change of condition. She verbalized understanding.
--- NOTE | 2020-01-16 15:35 | NUR ---
Spoke with Dr. Donohue and updated him with patient status. He states he recommends comfort care with morphine drip and NC. Dr. Jack paged.
--- NOTE | 2020-01-16 15:37 | NUR ---
Dr. Hollidayium notified in change of status and desaturation. He states he does not wish to start a morphine drip at this time.
--- NOTE | 2020-01-16 16:00 | NUR ---
Patient's family is in unit to visit.
--- NOTE | 2020-01-16 16:16 | NUR ---
Report given to SHASHANK Sales for continuation of care. All needs endorsed.
--- NOTE | 2020-01-16 16:20 | NUR ---
Received report to assume care of patient. Pt having lots of family in to visit. 02 sats 76% on 100% highflow at 100%. SR on monitor and will continue to monitor.
--- NOTE | 2020-01-16 19:30 | NUR ---
Report given to oncoming staff.
[2020-01-17] VITALS (12 sets, daily range): BP systolic 86–141
[2020-01-17] MEDS: INSULIN LISPRO SLIDING SCALE 100 UNITS/ML VIAL (humaLOG) SUBCUT PRN (06:48)
[2020-01-17] MEDS: FUROSEMIDE 40 MG/4 ML VIAL IVP SCH ×3 (07:29→11:39)
[2020-01-17] MEDS: LACTULOSE 20 GM/30 ML UDC NG SCH (08:14)
[2020-01-17] MEDS: RIFAXIMIN 550 MG TABLET NG SCH (08:14)
[2020-01-17] MEDS: CEFEPIME 0.5 GM in D5W 50 ML IV SCH (08:15)
[2020-01-17] MEDS: PANTOPRAZOLE SODIUM 40 MG/VIAL (PROTONIX) IVP SCH (08:15)
[2020-01-17] MEDS: lisinopriL 5 MG TABLET NG SCH (08:15)
[2020-01-17] MEDS: INSULIN GLARGINE 100 UNITS/ML 10 ML VIAL SUBCUT SCH (08:16)
[2020-01-17] MEDS: metroNIDAZOLE 500 mg/NS 100 ML IV SCH (09:33)
[2020-01-17] MEDS ORDERED: cefTRIAXone 1 GM in D5W 50 ML IV SCH (12:00)
--- NOTE | 2020-01-17 12:20 | NUR ---
Witnessed patient in asystole. Palpitated and auscultated for pulse and non found. Eyes fixed and dilated and non reactive. Second nurse verified. Pronouncement of at 1220.
--- NOTE | 2020-01-17 12:25 | NUR ---
Witnessed patient in asystole. Palpitated and auscultated for pulse and non found. Eyes fixed and dilated and non reactive. Second nurse verified. Pronouncement of at 1220.
--- NOTE | 2020-01-17 12:31 | NUR ---
INFORMED MD'S PATIENT DR. LIU SPOKE TO WALLY DIALED [phone] DR. BARBOUR SPOKE TO MD DR. CANDELARIO SPOKE TO ARICELSarah DIALED [phone] CHOPRA SPOKE TO AWA DIALED [phone] DR. OJEDA SPOKE TO DIALED [phone]
[2020-01-17] MEDS: LevALBUTEROL HCL 1.25 MG/0.5 ML *CONC.* VIAL.NEB (XOPENEX CONC.) INH SCH (14:32)
== END 2020-01-17 12:20 | disposition expired | DRG 871 ==
LOC: SED 11:31 → STU 14:17 → SIC 01-10 18:50
PROVIDERS: ADMIT Family Medicine; ATTEND Family Medicine
PROC: 02HV33Z Insertion of Infusion Device into Superior Vena Cava, Percutaneous Approach (ICD-10-PCS; principal; 2020-01-06)
PROC: B548ZZA Ultrasonography of Superior Vena Cava, Guidance (ICD-10-PCS; 2020-01-06)
DX: A41.9 Sepsis, unspecified organism (principal); J15.6 Pneumonia due to other Gram-negative bacteria; J69.0 Pneumonitis due to inhalation of food and vomit; R65.21 Severe sepsis with septic shock; G93.41 Metabolic encephalopathy; J96.01 Acute respiratory failure with hypoxia; E87.1 Hypo-osmolality and hyponatremia; E87.2 Acidosis; E11.649 Type 2 diabetes mellitus with hypoglycemia without coma; I10 Essential (primary) hypertension; K70.30 Alcoholic cirrhosis of liver without ascites; I25.10 Atherosclerotic heart disease of native coronary artery without angina pectoris; F10.10 Alcohol abuse, uncomplicated; Y90.9 Presence of alcohol in blood, level not specified; K72.90 Hepatic failure, unspecified without coma; Z66 Do not resuscitate; K70.10 Alcoholic hepatitis without ascites; R16.2 Hepatomegaly with splenomegaly, not elsewhere classified; F17.200 Nicotine dependence, unspecified, uncomplicated; S01.01XA Laceration without foreign body of scalp, initial encounter; W18.39XA Other fall on same level, initial encounter; Z79.84 Long term (current) use of oral hypoglycemic drugs; Z81.8 Family history of other mental and behavioral disorders; Z95.1 Presence of aortocoronary bypass graft; Y93.89 Activity, other specified; Y92.89 Other specified places as the place of occurrence of the external cause; Y99.8 Other external cause status
CPT/HCPCS: 36415; 36600; 70450-TC; 71045; 76700-TC; 80048; 80053; 80076; 81000-TC; 82140-TC; 82248-TC; 82570-TC; 82803-TC; 82962; 83036; 83605; 83735-TC; 83880; 83935-TC; 84100-TC; 84302-TC; 84478-TC; 84484; 85025; 85610-TC; 85730-TC; 86705; 86709; 86803; 87040-TC; 87070-TC; 87081; 87086; 87186-TC; 87205-TC; 87340; 92610-GN; 93005; 94640; 96365; 96366; 96375; 99291; C1751; C9113; G0378; G0482; J0692; J0696; J1815; J1940; J2060; J2270; J2354; J2543; J3411; J3475; J3480; J3490; J7030; J7040; J7050; J7060; J7612; P9046